=== PATIENT | female | born 1980 | race Caucasian/White ===

== ENCOUNTER 2024-07-23 18:52 | Outpatient (REF) | payer BC, SELFPAY ==
[2024-07-30 13:09] LABS: Age Gdln ACOG Testing Note (.); HPV Aptima Negative (Negative); IGP, Aptima HPV, rfx 16/18,45 Note (.)
== END 2024-07-23 18:53 | disposition home or self-care (01) ==
LOC: LAB 18:52
PROVIDERS: Visit Provider Physician Assistant
DX: Z01.419 Encounter for gynecological examination (general) (routine) without abnormal findings (principal)
CPT/HCPCS: 87624; 88175

== ENCOUNTER 2024-08-13 10:55 | Outpatient (OUT) | payer BC, SELFPAY ==
--- NOTE | 2024-08-13 10:58 | ECG_ITS ---
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
[2024-08-13 12:14] LABS: Anion Gap 14.6; Calcium 9.4 mg/dL (8.5-10.1); Carbon Dioxide 27.1 mmol/L (21.0-32.0); Chloride 101 mmol/L (98-107); Estimated GFR (African America >60 (>=60 mL/min/1.73m^2); Estimated GFR (Non-African Ame 53 (>=60 mL/min/1.73m^2); Glucose 97 mg/dL (74-106); Potassium 3.7 mmol/L (3.5-5.1); Sodium 139 mmol/L (136-145)
== END 2024-08-13 10:56 | disposition home or self-care (01) ==
LOC: PST 10:57
PROVIDERS: Visit Provider Obstetrics & Gynecology
DX: Z01.810 Encounter for preprocedural cardiovascular examination (principal); Z01.812 Encounter for preprocedural laboratory examination; R10.2 Pelvic and perineal pain; N94.10 Unspecified dyspareunia
CPT/HCPCS: 80048; 83735; 93005

== ENCOUNTER 2024-08-22 09:14 | Day surgery (SDC) | payer BC, SELFPAY ==
[2024-08-13 11:49] VITALS: BP 132/84; PULSE 75; TEMP 36.3; O2SAT 100; BMI 26.1
[2024-08-22] VITALS (15 sets, daily range): BP systolic 120–159; BP diastolic 73–101; PULSE 73–92; TEMP 36.1–36.4; O2SAT 97–100; BMI 26.3
[2024-08-22 09:32] LABS: Basophils Absolute Auto 0.1 10^3/uL (0.0-0.1); Basophils Percent Auto 0.8 % (0.2-2.0); Eosinophils Absolute Auto 0.4 10^3/uL (0.0-0.7); Eosinophils Percent Auto 4.9 % (0.9-7.0); Hematocrit 42.2 % (36.0-48.0); Hemoglobin 14.3 g/dL (12.0-16.0); Immature Granulocytes Abs Auto 0.02 10^3/uL (0.00-0.03); Immature Granulocytes Pct Auto 0.3 % (0.0-0.5); Lymphocytes Absolute Auto 1.8 10^3/uL (1.2-3.8); Lymphocytes Percent Auto 23.5 % (20.5-60.0); Mean Corpuscular HGB Conc 33.9 g/dL (29.9-35.2); Mean Corpuscular Hemoglobin 30.8 pg (26.7-34.0); Mean Corpuscular Volume 90.8 fL (81.0-99.0); Mean Platelet Volume 8.9 fL (9.5-13.5); Monocytes Absolute Auto 0.6 10^3/uL (0.3-0.8); Monocytes Percent Auto 7.7 % (1.7-12.0); Neutrophils Absolute Auto 4.8 10^3/uL (1.4-6.5); Neutrophils Percent Auto 62.8 % (43.0-75.0); Platelet Count 304 10^3/uL (150-450); Red Blood Count 4.65 10^6/uL (4.20-5.40); Red Cell Distribution Width 12.3 % (11.0-15.0); White Blood Count 7.7 10^3/uL (4.0-11.0)
[2024-08-22] MEDS: LACTATED RINGER'S SOLUTION 1,000 ML 50 ML IV (10:08)
[2024-08-22] MEDS: FAMOTIDINE/PF 20 MG/2 ML VIAL IV (10:45)
[2024-08-22] MEDS: SCOPOLAMINE 1 MG/3 DAYS TRANSDERM PATCH 1 PATCH TD (10:48)
[2024-08-22 11:05] LABS: HCG Quantitative <1 mIU/mL
--- NOTE | 2024-08-22 12:28 | P.ON_ITS ---
Brief Operative Note Date of procedure: 08/22/24 Pre-op diagnosis general: menorrhagia, pelvic pain Post-op diagnosis: other (adenomyotic appearing uterus bilateral hydrosalpingx) Procedure: NAME OF PROCEDURE: [d&c hysteroscopy, bilateral salpingectomy removal of filschie clips on rt side, lt side filschie clips not seen] PROCEDURE: findings adenomyotic appearing uterus, bilateral hydrosalpingx The patient was taken back to the Operating Room where she was prepped and draped in normal sterile fashion after being placed under general anesthesia without difficulty. She was also placed in the dorsal lithotomy position. A weighted speculum was placed in the patient?s vagina. The anterior lip of the cervix was identified and grasped with a single tooth tenaculum. The patient?s uterus was then sounded roughly to [?8 ] cm. The patient was then gently dilated using Hegar dilators. The hysteroscope was passed through the patient?s cervix into the uterus. Both ostia were identified. Normal appearing endometrium. No gross evidence of polyps, fibroids or malignancy. The hysteroscope was then removed from the patient's uterus.? At that point, gentle curettage was performed until a gritty texture was noted. The endometrial curettings were sent out to pathology.? The single tooth tenaculum was then removed from the patient's anterior lip of the cervix where excellent hemostasis was noted.. A wet sponge stick was placed into the patient's vagina. Attention was then turned to the patient's abdomen, where a scalpel was used to make a small infraumbilical incision. The S retractors were then used to dissect the underlying layers until the fascia could be seen. The fascia was then grasped with Jessica clamps and tented up. A knife was then used to make a small incision to the fascia. The muscle was identified, at that time two sutures of #0 Vicryl on a GI needle was then used and placed through the fascia. the peritoneum was then identified and entered bluntly. The 10-4 Brenda was then placed into the patient's abdomen. This was confirmed with direct visualization of the bowel, using the laparoscope. The patient's abdomen was then insufflated using approximately 4 liters of CO2 gas. Survey of the patient's abdomen demonstrated ovaries were normal in appearance as well as both tubes and uterus. A second and third rt and lt lateral ports which were 5 and 8 mm in size, was then placed after the skin incision was made under direct visualization . The patient's tube on the patient's right side was identified and tented up using a grasper, the ligasure apparatus was then used to come across the mesosalpingx from the fimbriated end to the insertion site at the uterus, the tube was then amputated and removed in its entirety. This was done on the contralateral side. The tubes were the removed from the patients abdomen. Excellent hemostasis was noted. The lateral ports were then moved under direct visualization with excellent hemostasis. All instruments were removed from the patient's abdomen. The fascia was closed using the #0 Vicryl on GI needle. The skin was closed using 4-0 Vicryl subcuticularly. All instruments were removed from the patient's vagina as well. The patient was taken out of the dorsal lithotomy position and placed in the supine position and taken to recovery in stable condition. Sponge, lap and needle counts were correct x2. Anesthesia: SANDY Surgeon: Nhan Aleman Cracking Still Operator: Elisha Haider Estimated blood loss (mL): 5 Pathology: other (bilateral tubes and endometrial currettings) Condition: stable Disposition: PACU Urinary Catheter Management Urinary Catheter Management Urethral: Cath placed during this visit: no
[2024-08-22] MEDS: LACTATED RINGER'S SOLUTION 1,000 ML 1000 ML IV (12:38)
[2024-08-22] MEDS: HYDROCODONE/ACET 5-325 MG TABLET 1 TAB PO (13:11)
[2024-08-22] MEDS: HYDROMORPHONE HCL 0.5 MG/0.5 ML SYRINGE IV (13:29)
[2024-08-22] MEDS: PROMETHAZINE HCL 25 MG TABLET PO (13:54)
== END 2024-08-22 14:33 | disposition home or self-care (01) ==
PROVIDERS: Visit Provider Obstetrics & Gynecology
PROC: (CPT 840; principal; 2024-08-22 10:35)
PROC: (CPT 840; 2024-08-22 10:35)
DX: N92.0 Excessive and frequent menstruation with regular cycle (principal); R10.2 Pelvic and perineal pain; N70.11 Chronic salpingitis; N80.03 Adenomyosis of the uterus; Z30.2 Encounter for sterilization
CPT/HCPCS: 58558; 58661; 36415; 84702; 85025; 88302; 88305; J1100; J1171; J1200; J1885; J2250; J2405; J2704; J3010; Q0169

== ENCOUNTER 2025-07-29 15:15 | Outpatient (REF) | payer BC, SELFPAY ==
--- OUTSIDE RECORDS SUMMARY | 2025-07-22 13:30 | XMS_ITS | Encounter Summary ---
Author Organization [facility] Address [address] [place] [address] Care Team Providers Care Block Setter [place] Name Role Phone Barbara Yousif NP Unavailable [phone] Micheal An MD Primary Care Provider [phone] Reason for Referral * Consultation (Routine) - AuthorizedSpecialtyDiagnoses / ProceduresReferred By ContactReferred To ContactDermatology Diagnoses Screening for skin cancer Procedures [place] OFFICE/OUTPATIENT [facility] 60 MINUTES Barbara Yousif NP [address] [place] [address] Phone: tel: fax: [place] [address] Phone: tel: fax: Referral IDStatusReasonStart DateExpiration DateVisits RequestedVisits [id number] Specialty Services Required / Reason for Visit * ReasonCommentsFatiguePt has had joint pain, fatigue, muscle weakness for quite a while. Pt's proprietary trader wanted her checked for autoimmune disorders and vitamins checked to see if that was causing the symptoms. Encounter Details DateTypeDepartmentCare Team (Latest Contact Info)Ryaujjekqhw66/15/2025 1:30 PM EDTOffice Visit [facility] [address] [place] [phone] Barbara Yousif NP [address] [place] [address] Chronic fatigue (Primary Dx); Pain in other joint; Muscle weakness; Palpitation; Primary hypertension; Paroxysmal atrial fibrillation (HCC); PVC (premature ventricular contraction); Mitral valve insufficiency, unspecified etiology; Heat intolerance; Hair loss; Shortness of breath; Family history of lung disease; Chronic cough; Anxiety about health; Screening for skin cancer; Family history of thyroid disease Social History Tobacco UseTypesPacks/DayYears UsedDateSmoking Tobacco: NeverPassive Smoke Exposure: PastSmokeless Tobacco: NeverAlcohol UseStandard Drinks/WeekComments Never0 (1 standard drink = 0.6 oz pure alcohol)AUDIT-CAnswerDate RecordedQ1: How often do you have a drink containing alcohol?Never04/06/2025Q2: How many drinks containing alcohol do you have on a typical day when you are drinking?Patient does not drink04/06/2025Q3: How often do you have six or more drinks on one occasion?Never04/06/2025PHQ-2AnswerDate RecordedPatient Health Questionnaire-2 Wlxwy745CommentsNoSex and Gender InformationValueDate Recorded Sex Assigned at SkncfIpcdfa93/11/2024 3:14 PM ESTLegal UavKeqgmw89/15/2023 7:00 PM EDTGender OgczaptvBgddei07/11/2024 3:14 PM ESTSexual OrientationNot on file documented as of this encounter Last Filed Vital Signs Vital SignReadingTime TakenCommentsBlood Hvvkjwap748/8810 1:22 PM EDT Qlpfp9245 1:22 PM EDTTemperature--Respiratory Rate--Oxygen Saturation-- Inhaled Oxygen Concentration--Zrudqb43.2 kg (126 lb)07/22/2025 1:22 PM EDTHeight --Body Mass Index21.1306 2:17 PM EDTdocumented in this encounter Progress Notes * Barbara Yousif NP - 07/22/2025 1:30 PM EDT Images from the original note were not included. Rosie Sandhu is a 45 y.o. female presents with chief complaint of Fatigue (Pt has had joint pain, fatigue, muscle weakness for quite a while. Pt's proprietary trader wanted her checked for autoimmune disorders and vitamins checked to see if that was causing the symptoms. ) HPI: HPI History of Present Illness The patient is a 45-year-old female who presents for follow-up. She recently consulted with a proprietary trader for a second opinion, during which an echocardiogram wasperformed. A cardiac MRI has been scheduled for next . Medication has been requested to manage anxiety during the MRI, as she has only undergone one such procedure in the past, prior to her first heart surgery. She has no history of Xanax use. Palpitations continue, and a two-week monitoring revealed atrial flutter. Her metoprolol dosage was increased from 100 mg to 150 mg, but this has not alleviated fatigue. She was advised to take metoprolol in the evening to help with fatigue. Referral to an health safety specialist for potential repeat ablation has been made, but this has not yet beenscheduled. She will revisit this issue in August 2025. A sleep study is scheduled for September 2025. Referral for genetic counseling has been made. Family history includes heart and lung issues, with her father having been born with half a heart. Her EKG showed sinus rhythm with nonspecific T wave changes and hypokinesis. She was informed that some of her valves are weakening and thickening. The proprietary trader suspects a genetic component, possibly related to connective tissue, and has recommended further testing for rheumatoid or autoimmune conditions, as well as checking B vitamins. A follow-up appointment with her proprietary trader is scheduled for 09/01/2025. She reports joint pain, particularly in her hips, shoulders, wrists, and elbows, which is exacerbated by cold weather and prolonged use. Muscle weakness is noted in her thighs, shoulders, and arms, making overhead tasks difficult. Pain is more manageable when she remains active but intensifies at night. NSAIDs like Motrin or Aleve provide some relief, but she is mindful not to overuse them due topotential stomach issues and vomiting. Autoimmune testing has not been done, but elevated levels ofcertain markers were noted in 2020, which were not addressed as she did not have a primary care physician at the time. High creatinine levels and a urine test result of 20 were reported in 2020. Elevated blood pressure was noted today, attributed to running out of metoprolol for four days due to insurance issues. She picked up her refill yesterday and reports normal blood pressure readings at home. Her vitamin D level was high last time, and Dr. Alexander mentioned that if it was high again when retested last week, sarcoidosis would be considered. She continues to experience vomiting. After her colonoscopy and endoscopy, no follow-up appointmentwas scheduled. She has a spot on her nose that her mother had removed, which was cancerous. Her mother said it looks just the same. A long-standing dry cough and shortness of breath have been reported to her proprietary trader. Lisinopril was discontinued due to its exacerbation of her cough. SUBJECTIVE: MEDICATIONS: Current Outpatient Medications Medication Instructions ALPRAZolam (XANAX) 0.5 mg, Oral, Daily PRN cetirizine (ZyrTEC) 10 MG tablet Take by mouth EPINEPHrine (EPIPEN) 0.3 mg, Injection, As needed, Call 911 after use. famotidine (PEPCID) 20 mg, Daily hydroCHLOROthiazide (HYDRODIURIL) 12.5 mg, Daily magnesium oxide (MAG-OX) 400 mg, Daily metoprolol succinate XL (TOPROL-XL) 100 mg, Daily ALLERGIES: Allergies[1] History: Medical History[2] Surgical History[3] Family History[4] Social History Socioeconomic History Marital status: Spouse name: Not on file Number of children: Not on file Years of education: Not on file Highest education level: Not on file Occupational History Not on file Tobacco Use Smoking status: Never Passive exposure: Past Smokeless tobacco: Never Vaping Use Vaping status: Never Used Substance and Sexual Activity Alcohol use: Never Drug use: Not on file Sexual activity: Not on file Other Topics Concern Not on file Social History Narrative Not on file Social Drivers of Health Financial Resource Strain: Not on file Food Insecurity: Not on file Transportation Needs: Not on file Physical Activity: Not on file Stress: Not on file Social Connections: Not on file Intimate Partner Violence: Not on file Housing Stability: Not on file I have reviewed and reconciled the history and medication list with the patient today. REVIEW OF SYMPTOMS: Review of Systems Constitutional: Negative for activity change, appetite change and fatigue. HENT: Negative. Respiratory: Negative for cough, shortness of breath and wheezing. Cardiovascular: Positive for palpitations. Negative for chest pain. Gastrointestinal: Positive for nausea and vomiting. Negative for abdominal pain and diarrhea. Genitourinary: Negative. Musculoskeletal: Positive for arthralgias and joint swelling. Skin: Negative for color change, rash and wound. Neurological: Positive for weakness. Psychiatric/Behavioral: Negative. OBJECTIVE: Results Labs - Vitamin D: 44 ng/mL Imaging - Echocardiogram: Ejection fraction of 55% to 60% Diagnostic Testing - EKG: Sinus rhythm with nonspecific T wave changes 03/25/2024 4:02 PM 06/25/2024 2:26 PM 07/23/2024 9:55 AM 09/03/2024 8:36 AM 10/02/2024 7:54 AM 04/06/2025 2:17 PM 07/22/2025 1:22 PM Vitals BMI 26.43 kg/m2 25.99 kg/m2 25.83 kg/m2 26.66 kg/m2 22.71 kg/m2 21.13 kg/m2 BSA (m2) 1.81 m2 1.79 m2 1.79 m2 1.81 m2 1.67 m2 1.62 m2 Systolic 126 130 112 112 128 124 136 Diastolic 82 88 72 70 90 86 88 Heart Rate 76 72 76 76 Height (in) 5' 4.75 5' 4.75 5' 4.75 Weight (lb) 157.6 155 154 159 135.4 126 Visit Report Report Report Report Report Report Report Report Physical Exam Vitals reviewed. Constitutional: General: She is not in acute distress. Appearance: Normal appearance. She is not ill-appearing. Cardiovascular: Rate and Rhythm: Normal rate and regular rhythm. Heart sounds: No murmur heard. Pulmonary: Effort: Pulmonary effort is normal. No respiratory distress. Breath sounds: Normal breath sounds. No wheezing or rhonchi. Abdominal: General: Bowel sounds are normal. There is no distension. Palpations: Abdomen is soft. Tenderness: There is no abdominal tenderness. Musculoskeletal: Right lower leg: No edema. Left lower leg: No edema. Skin: General: Skin is warm and dry. Findings: No rash. Neurological: Mental Status: She is alert. Mental status is at baseline. Psychiatric: Mood and Affect: Mood normal. Behavior: Behavior normal. Thought Content: Thought content normal. Judgment: Judgment normal. Physical Exam ASSESSMENT AND PLAN: Assessment/Plan Diagnoses and all orders for this visit: Chronic fatigue - CBC and differential; Future - Vitamin B12; Future - PHYLLIS; Future - Rheumatoid factor; Future - Comprehensive metabolic panel; Future - Sedimentation rate, automated; Future - Uric acid; Future - C-reactive protein; Future - Vitamin B6; Future - TSH; Future - T4, free; Future - Thyroglobulin; Future - Thyroid peroxidase antibody; Future - T3, free; Future Pain in other joint - CBC and differential; Future - Vitamin B12; Future - PHYLLIS; Future - Rheumatoid factor; Future - Comprehensive metabolic panel; Future - Sedimentation rate, automated; Future - Uric acid; Future - C-reactive protein; Future - Vitamin B6; Future - TSH; Future - T4, free; Future - Thyroglobulin; Future - Thyroid peroxidase antibody; Future - T3, free; Future Muscle weakness - CBC and differential; Future - Vitamin B12; Future - PHYLLIS; Future - Rheumatoid factor; Future - Comprehensive metabolic panel; Future - Sedimentation rate, automated; Future - Uric acid; Future - C-reactive protein; Future - Vitamin B6; Future - TSH; Future - T4, free; Future - Thyroglobulin; Future - Thyroid peroxidase antibody; Future - T3, free; Future Palpitation - CBC and differential; Future - Vitamin B12; Future - PHYLLIS; Future - Rheumatoid factor; Future - Comprehensive metabolic panel; Future - Sedimentation rate, automated; Future - Uric acid; Future - C-reactive protein; Future - Vitamin B6; Future - TSH; Future - T4, free; Future - Thyroglobulin; Future - Thyroid peroxidase antibody; Future - T3, free; Future Primary hypertension Paroxysmal atrial fibrillation (HCC) PVC (premature ventricular contraction) Mitral valve insufficiency, unspecified etiology Heat intolerance - CBC and differential; Future - Vitamin B12; Future - PHYLLIS; Future - Rheumatoid factor; Future - Comprehensive metabolic panel; Future - Sedimentation rate, automated; Future - Uric acid; Future - C-reactive protein; Future - Vitamin B6; Future - TSH; Future - T4, free; Future - Thyroglobulin; Future - Thyroid peroxidase antibody; Future - T3, free; Future Hair loss - CBC and differential; Future - Vitamin B12; Future - PHYLLIS; Future - Rheumatoid factor; Future - Comprehensive metabolic panel; Future - Sedimentation rate, automated; Future - Uric acid; Future - C-reactive protein; Future - Vitamin B6; Future - TSH; Future - T4, free; Future - Thyroglobulin; Future - Thyroid peroxidase antibody; Future - T3, free; Future Shortness of breath - Pulmonary Function Test Family history of lung disease Chronic cough - Pulmonary Function Test Anxiety about health - ALPRAZolam (Xanax) 0.5 MG tablet; Take 1 tablet (0.5 mg) by mouth Daily as needed for anxiety (prior to MRI, may repeat x 1 if needed) Screening for skin cancer - Ambulatory referral to Dermatology; Future Family history of thyroid disease - TSH; Future - T4, free; Future - Thyroglobulin; Future - Thyroid peroxidase antibody; Future - T3, free; Future Other orders - Follow Up In Family Medicine; Future Assessment & Plan 1. Cardiac evaluation: - She recently saw a new proprietary trader for a second opinion and underwent an echocardiogram. A cardiac MRI is scheduled for next to further investigate hypokinesis and potential genetic issues. - She has been experiencing palpitations and was found to have atrial flutter on a 2-week monitor. Her metoprolol dosage was increased from 100 mg to 150 mg, but it has not helped with fatigue. - She will follow up with cardiology in August to discuss possible repeat ablation. - Xanax 0.5 mg will be prescribed for her upcoming cardiac MRI, to be taken 30 minutes prior to theprocedure, with an additional dose available if needed. 2. Joint pain: - She reports severe joint pain in her hips, shoulders, wrists, and elbows, especially during colder weather and after carrying children. Her fingers and feet turn blue and white, suggesting possibleRaynaud's phenomenon. - A comprehensive set of labs will be ordered today, including CBC with differential, CMP, vitamin B12, vitamin B6, rheumatoid factor, PHYLLIS, sed rate, C- reactive protein, uric acid level, TSH, peroxidase antibody, and a full thyroid workup. - If the PHYLLIS test returns positive, a referral to rheumatology will be made. 3. Vomiting: - She continues to experience vomiting. Advised to follow up with GI. 4. Skin cancer screening: - A referral to dermatology will be made for a comprehensive skin check due to a spot on her nose that resembles a previous cancerous lesion removed from her mother. 5. Dry cough: - She has a long-standing dry cough and shortness of breath, which have been reported to her proprietary trader. - A pulmonary function test will be ordered to evaluate her lung function. Follow-up: Follow up with cardiology in August. Follow up with Barbara Yousif After Tests, if symptoms worsen or fail to improve. [1] Allergies Allergen Reactions Other Shortness of breath Seafood Shellfish Protein-Containing Drug Products Anaphylaxis Atorvastatin Muscle aches Shellfish Allergy [2] Past Medical History: Diagnosis Date Atrial fibrillation (HCC) [3] Past Surgical History: Procedure Laterality Date COLONOSCOPY 09/25/2024 OTHER SURGICAL HISTORY 01/21/2013 PVL ablation SALPINGOOPHORECTOMY 08/22/2024 bilateral with D&C TUBAL LIGATION [4] Family History Problem Relation Name Age of Onset No Known Problems Mother COPD Father Other (carbon monoxide poisoning) Father Crohn's disease Brother Hypertension Maternal Grandmother Hyperlipidemia Maternal Grandmother Coronary artery disease Maternal Grandmother Hypertension Maternal Grandfather Hyperlipidemia Maternal Grandfather Cerebral aneurysm Maternal Grandfather Lung cancer Paternal Grandmother Diabetes Paternal Grandmother Heart disease Paternal Grandfather Lung cancer Cousin Melanoma Cousin Cancer Other maternal great aunt documented in this encounter Plan of Treatment DateTypeDepartmentCare Team (Latest Contact Info)Fwupgbcbfrk44/15/2025 3:30 PM ESTProcedure Visit DANIELLE TAYLOR [address] [place] [address] Nhan Aleman DO [address] [place], [place] [id number] 04/08/2026 1:00 PM EDTOffice Visit [facility] [address] [place] [address] Barbara Yousif NP [address] [place] [address] 08/04/2026 9:00 AM EDTProcedure Visit DANIELLE TAYLOR [address] [place] [address] Virgie Lomax PA [address] [place] [address] [place] [address] NameTypePriorityAssociated DiagnosesOrder SchedulePulmonary Function TestImaging Routine Shortness of breath Chronic cough Ordered: 07/22/2025NameTypePriorityAssociated DiagnosesOrder ScheduleAmbulatory referral to DermatologyOutpatient ReferralRoutine Screening for skin cancer Expected: 07/22/2025 (Approximate), Expires: 01/20/2026documented as of this encounter Procedures Procedure NamePriorityDate/TimeAssociated DiagnosisCommentsANTINUCLEAR ANTIBODIES TITER AND BEXYZLVTsfenwf34/15/2025 2:14 PM EDT THYROID PEROXIDASE OVYLRGTLBJQgircje25/15/2025 2:14 PM EDT Chronic fatigue Pain in other joint Muscle weakness Palpitation Heat intolerance Hair loss Family history of thyroid disease NRSCTTXADIASPCcycijq87/15/2025 2:14 PM EDT Chronic fatigue Pain in other joint Muscle weakness Palpitation Heat intolerance Hair loss Family history of thyroid disease SED RATE BY MODIFIED ODKWIXZSPEFjkrjkh59/15/2025 2:14 PM EDT Chronic fatigue Pain in other joint Muscle weakness Palpitation Heat intolerance Hair loss CBC (INCLUDES DIFF/PLT)Shpjhel3407/22/2025 2:14 PM EDT Chronic fatigue Pain in other joint Muscle weakness Palpitation Heat intolerance Hair loss RHEUMATOID DRZDURIbgyjsr34/15/2025 2:14 PM EDT Chronic fatigue Pain in other joint Muscle weakness Palpitation Heat intolerance Hair loss C-REACTIVE EYFLWVEUkknuwc15/15/2025 2:14 PM EDT Chronic fatigue Pain in other joint Muscle weakness Palpitation Heat intolerance Hair loss PHYLLIS SCREEN W/MBFMNLRtaegyc44/15/2025 2:14 PM EDT Chronic fatigue Pain in other joint Muscle weakness Palpitation Heat intolerance Hair loss URIC HXEQZjimban27/15/2025 2:14 PM EDT Chronic fatigue Pain in other joint Muscle weakness Palpitation Heat intolerance Hair loss T3, FNKUJzrvsew93/15/2025 2:14 PM EDT Chronic fatigue Pain in other joint Muscle weakness Palpitation Heat intolerance Hair loss Family history of thyroid disease HDAXdotynu02/15/2025 2:14 PM EDT Chronic fatigue Pain in other joint Muscle weakness Palpitation Heat intolerance Hair loss Family history of thyroid disease T4, XCWJRhjsyqr10/15/2025 2:14 PM EDT Chronic fatigue Pain in other joint Muscle weakness Palpitation Heat intolerance Hair loss Family history of thyroid disease VITAMIN B6, BHAFSCXizvund26/15/2025 2:14 PM EDT Chronic fatigue Pain in other joint Muscle weakness Palpitation Heat intolerance Hair loss VITAMIN E04Mwipxlh68/15/2025 2:14 PM EDT Chronic fatigue Pain in other joint Muscle weakness Palpitation Heat intolerance Hair loss COMPREHENSIVE METABOLIC FKHTPQaonoay55/15/2025 2:14 PM EDT Chronic fatigue Pain in other joint Muscle weakness Palpitation Heat intolerance Hair loss documented in this encounter Results * (ABNORMAL) ANTINUCLEAR ANTIBODIES TITER AND PATTERN (07/22/2025 2:14 PM EDT) ComponentValueRef RangeTest MethodAnalysis TimePerformed AtPathologist SignatureANA TITER1:160(H)titerQUESTComment: ?Reference Range <1:40 Negative ?1:40-1:80 ?Low Antibody Level >1:80 Elevated Antibody Level PHYLLIS PATTERNNuclear, Speckled(A)QUESTComment: Speckled pattern is associated with mixed connective tissue disease (MCTD), systemic lupus erythematosus (SLE), Sjogren's syndrome, dermatomyositis, and systemic sclerosis/polymyositis overlap. AC-2,4,5,29: Speckled International Consensus on PHYLLIS Patterns (https://doi.org/10.[facility]5/kffp-0938-5873) Specimen (Source)Anatomical Location / LateralityCollection Method / Volume Collection TimeReceived Time07/22/2025 2:14 PM EDT1 2:15 PM EDT Narrative Resulting Agency Comment Performing Organization Information ?Site ID: QPT ?Name: [employer] [facility] ?Address: [address] [place] [address], [address] [place] [address] ?Director: Justino Casillas MD Authorizing ProviderResult TypeResult StatusBarbara Yousif ImmunotEGGLAB BLOOD ORDERABLESFinal ResultPerforming OrganizationAddressty/[facility] CodePhone Number QUEST * T3, free (07/22/2025 2:14 PM EDT)ComponentValueRef RangeTest MethodAnalysis TimePerformed AtPathologist SignatureT3, FREE2.72.3 - 4.2 pg/mLQUESTSpecimen (Source)Anatomical Location / LateralityCollection Method / VolumeCollection TimeReceived TimeBloodVenous blood specimen / Ybnhyea3607/22/2025 2:14 PM EDT 07/22/2025 2:15 PM EDT Narrative Resulting Agency Comment Performing Organization Information ?Site ID: QPT ?Name: [employer] [facility] ?Address: [address] [place] [address], [address] [place] [address] ?Director: Justino Casillas MD Authorizing ProviderResult TypeResult StatusSasara Yousif NPLAB BLOOD ORDERABLESFinal ResultPerforming OrganizationAddressty/[facility]/ZIP CodePhone Number QUEST * Thyroid peroxidase antibody (07/22/2025 2:14 PM EDT)ComponentValueRef Range Test MethodAnalysis TimePerformed AtPathologist SignatureTHYROID PEROXIDASE ANTIBODIES1<9 IU/mLQUESTSpecimen (Source)Anatomical Location / Laterality Collection Method / VolumeCollection TimeReceived TimeBloodVenous blood specimen / Kfujvke0907/22/2025 2:14 PM EDT1 2:15 PM EDT Narrative Resulting Agency Comment Performing Organization Information ?Site ID: QPT ?Name: [employer] [facility] ?Address: [address] [place] [address], [address] [place] [address] ?Director: Justino Casillas MD Authorizing ProviderResult TypeResult StatusSasara Yousif LAB BLOOD ORDERABLESFinal ResultPerforming OrganizationAddressCity/[facility] CodePhone Number QUEST * Thyroglobulin (07/22/2025 2:14 PM EDT)ComponentValueRef RangeTest Method Analysis TimePerformed AtPathologist SignatureTHYROGLOBULIN ANTIBODIES<1< or = 1 IU/mLQUESTTHYROGLOBULIN8.5ng/mLQUESTComment: ?Reference Range: ?Intact Thyroid ?? 2.8-40.9 Athyrotic <0.1 ?Note: Abnormal flagging is based ?on the reference interval for ?patients with intact thyroid. ? This test was performed using the MWI chemiluminescent method. Values obtained from different assay methods cannot be used interchangeably. Thyroglobulin levels, regardless of value, should not be interpreted as absolute evidence of the presence or absence of disease. For additional information, please refer to http://education.[employer].Assembly/faq/RLO428 (This link is being provided for informational/ educational purposes only.) Specimen (Source)Anatomical Location / LateralityCollection Method / Volume Collection TimeReceived TimeBloodVenous blood specimen / Xljmzxa5307/22/2025 2:14 PM EDT1 2:15 PM EDT Narrative Resulting Agency Comment Performing Organization Information ?Site ID: QPT ?Name: [employer] [facility] ?Address: [address] [place] [address], [address] [place] [address] ?Director: Justino Casillas MD Authorizing ProviderResult TypeResult StatusBarbara Yousif LAB BLOOD ORDERABLESFinal ResultPerforming OrganizationAddressCity/[facility] CodePhone Number QUEST * T4, free (07/22/2025 2:14 PM EDT)ComponentValueRef RangeTest MethodAnalysis TimePerformed AtPathologist SignatureT4, FREE1.20.8 - 1.8 ng/dLQUESTSpecimen (Source)Anatomical Location / LateralityCollection Method / VolumeCollection TimeReceived TimeBloodVenous blood specimen / Dybyzeb4507/22/2025 2:14 PM EDT 07/22/2025 2:15 PM EDT Narrative Resulting Agency Comment Performing Organization Information ?Site ID: QPT ?Name: [employer] [facility] ?Address: [facility], [address] [place] [phone] ?Director: Justino Casillas MD Authorizing ProviderResult TypeResult StatusBarbara Yousif ImmunotEGGLAB BLOOD ORDERABLESFinal ResultPerforming OrganizationAddressty/[facility] CodePhone Number QUEST * TSH (07/22/2025 2:14 PM EDT)ComponentValueRef RangeTest MethodAnalysis Time Performed AtPathologist SignatureTSH1.60mIU/LQUESTComment: ?Reference Range ? > or = 20 Years 0.40-4.50 ? Ranges ?First trimester ?0.26-2.66 ?Second trimester ?? 0.55-2.73 ?Third trimester ?0.43-2.91 Specimen (Source)Anatomical Location / LateralityCollection Method / Volume Collection TimeReceived TimeBloodVenous blood specimen / Fvdwucm9307/22/2025 2:14 PM EDT1 2:15 PM EDT Narrative Resulting Agency Comment Performing Organization Information ?Site ID: QPT ?Name: [facility] [facility] ?Address: [facility] Man[facility] Alvarez, [address] [place] [phone] ?Director: Justino Casillas MD Authorizing ProviderResult TypeResult StatusBarbara Yousif NPLAB BLOOD ORDERABLESFinal ResultPerforming OrganizationAddressty/State/ZIP CodePhone Number QUEST * Vitamin B6 (07/22/2025 2:14 PM EDT)ComponentValueRef RangeTest MethodAnalysis TimePerformed AtPathologist SignatureVITAMIN B6, PLASMA8.12.1 - 21.7 ng/mL QUESTComment: Vitamin supplementation within 24 hours prior to blood draw may affect the accuracy of the results. This test was developed and its analytical performance characteristics have been determined by [employer] [place], [place]. It has not been cleared or approved by the U.S. Food and Drug Administration. This assay has been validated pursuant to the CLIA regulations and is used for clinical purposes. ? Specimen (Source)Anatomical Location / LateralityCollection Method / Volume Collection TimeReceived TimeBloodVenous blood specimen / Zwoqzwi2707/22/2025 2:14 PM EDT1 2:15 PM EDT Narrative Resulting Agency Comment Performing Organization Information ?Site ID: AMD ?Name: [employer]/[facility] ?Address: [address] [place] [address] [place], [place] ?Director: Wale Weber M.D.,PhD Authorizing ProviderResult TypeResult StatusBarbara Yousif ImmunotEGGLAB BLOOD ORDERABLESFinal ResultPerforming OrganizationAddgerald champion regional medical centerCity/State/ZIP CodePhone Number QUEST * C-reactive protein (07/22/2025 2:14 PM EDT)ComponentValueRef RangeTest Method Analysis TimePerformed AtPathologist SignatureC-REACTIVE PROTEIN<3.0<8.0 mg/L QUESTSpecimen (Source)Anatomical Location / LateralityCollection Method / VolumeCollection TimeReceived TimeBloodVenous blood specimen / Unknown 07/22/2025 2:14 PM EDT1 2:15 PM EDT Narrative Resulting Agency Comment Performing Organization Information ?Site ID: QPT ?Name: [facility] [facility] ?Address: [address] [place] [address], [address] [place] [phone] ?Director: Justino Casillas MD Authorizing ProviderResult TypeResult StatusSasara Yousif NPLAB BLOOD ORDERABLESFinal ResultPerforming OrganizationAddressCity/State/ZIP CodePhone Number QUEST * Uric acid (07/22/2025 2:14 PM EDT)ComponentValueRef RangeTest MethodAnalysis TimePerformed AtPathologist SignatureURIC ACID6.52.5 - 7.0 mg/dLQUESTComment: Therapeutic target for gout patients: <6.0 mg/dL ?? Specimen (Source)Anatomical Location / LateralityCollection Method / Volume Collection TimeReceived TimeBloodVenous blood specimen / Pshglen0807/22/2025 2:14 PM EDT1 2:15 PM EDT Narrative Resulting Agency Comment Performing Organization Information ?Site ID: QPT ?Name: [employer] [facility] ?Address: [address] [place] [address], [address] [place] [phone] ?Director: Justino Casillas MD Authorizing ProviderResult TypeResult StatusSasara Echavarria [employer] BLOOD ORDERABLESFinal ResultPerforming OrganizationAddressCity/State/ZIP CodePhone Number QUEST * Sedimentation rate, automated (07/22/2025 2:14 PM EDT)ComponentValueRef Range Test MethodAnalysis TimePerformed AtPathologist SignatureSED RATE BY MODIFIED XAJICHVXTB26< OR = 20 mm/hQUESTSpecimen (Source)Anatomical Location / LateralityCollection Method / VolumeCollection TimeReceived TimeBloodVenous blood specimen / Jcwzvwh4007/22/2025 2:14 PM EDT1 2:15 PM EDT Narrative Resulting Agency Comment Performing Organization Information ?Site ID: QPT ?Name: [facility] [facility] ?Address: [address] [place] [address], [address] [place] [phone] ?Director: Justino Casillas MD Authorizing ProviderResult TypeResult StatusSaShop 9 Sevenromina Echavarria [employer] BLOOD ORDERABLESFinal ResultPerforming OrganizationAddressCity/State/ZIP CodePhone Number QUEST * (ABNORMAL) Comprehensive metabolic panel (07/22/2025 2:14 PM EDT)Component ValueRef RangeTest MethodAnalysis TimePerformed AtPathologist SignatureGlucose 8165 - 99 mg/dLQUESTComment: ? Fasting reference interval OSD742 - 25 mg/dLQUESTCreatinine1.00(H)0.50 - 0.99 mg/vHQUPBIZLGL02> OR = 60 mL/min/1.94u7DVZABEUI/CREATININE BXPNM426 - 22 (calc)CBEXNDsrtdi321919 - 146 mmol/LQUESTPotassium, Bld3.3(L)3.5 - 5.3 mmol/YIHBFMKznfdjko40076 - 110 mmol/L QUESTCarbon Sqnmsyf3773 - 32 mmol/WUPHRLIlrdcef55.3(H)8.6 - 10.2 mg/dLQUEST PROTEIN, TOTAL8.06.1 - 8.1 g/dLQUESTALBUMIN4.93.6 - 5.1 g/dLQUESTGLOBULIN3.11.9 - 3.7 g/dL (calc)QUESTALBUMIN/GLOBULIN RATIO1.61.0 - 2.5 (calc)QUESTBILIRUBIN, TOTAL0.70.2 - 1.2 mg/dLQUESTALKALINE QLQFMLITUTP8851 - 125 U/OGJESOEYW0725 - 30 U/XKULRSTOK007 - 29 U/LQUESTSpecimen (Source)Anatomical Location / Laterality Collection Method / VolumeCollection TimeReceived TimeBloodVenous blood specimen / Ulymywt8907/22/2025 2:14 PM EDT1 2:15 PM EDT Narrative Resulting Agency Comment Performing Organization Information ?Site ID: QPT ?Name: [facility] [facility] ?Address: [address] [place] [address], [address] [place] [phone] ?Director: Justino Casillas MD Authorizing ProviderResult TypeResult StatusSasara Yousif NPLAB BLOOD ORDERABLESFinal ResultPerforming OrganizationAddressCity/State/ZIP CodePhone Number QUEST * (ABNORMAL) Rheumatoid factor (07/22/2025 2:14 PM EDT)ComponentValueRef Range Test MethodAnalysis TimePerformed AtPathologist SignatureRHEUMATOID IZGJUK591 (H)<14 IU/mLQUESTComment: Results verified by repeat analysis on dilution. Specimen (Source)Anatomical Location / LateralityCollection Method / Volume Collection TimeReceived TimeBloodVenous blood specimen / Qvkmbdr0907/22/2025 2:14 PM EDT1 2:15 PM EDT Narrative Resulting Agency Comment Performing Organization Information ?Site ID: QPT ?Name: [facility] [facility] ?Address: [address] [place] [address], [address] [place] [address] ?Director: Justino Casillas MD Authorizing ProviderResult TypeResult StatusBarbara Yousif [facility] BLOOD ORDERABLESFinal ResultPerforming OrganizationAddressty/State/[facility] CodePhone Number QUEST * (ABNORMAL) PHYLLIS (07/22/2025 2:14 PM EDT)ComponentValueRef RangeTest Method Analysis TimePerformed AtPathologist SignatureANA SCREEN, IFAPOSITIVE(A) NEGATIVEQUESTComment: PHYLLIS IFA is a first line screen for detecting the presence of up to approximately 150 autoantibodies in various autoimmune diseases. A positive PHYLLIS IFA result is suggestive of autoimmune disease and reflexes to titer and pattern. Further laboratory testing may be considered if clinically indicated. For additional information, please refer to http://education.Asker/faq/DNN555 (This link is being provided for informational/ educational purposes only.) ?? Specimen (Source)Anatomical Location / LateralityCollection Method / Volume Collection TimeReceived TimeBloodVenous blood specimen / Ofxporf7707/22/2025 2:14 PM EDT1 2:15 PM EDT Narrative Resulting Agency Comment Performing Organization Information ?Site ID: QPT ?Name: [employer] [facility] ?Address: [address] [place] [address], [address] [place] [address] ?Director: Justino Casillas MD Authorizing ProviderResult TypeResult StatusBarbara Yousif [facility] BLOOD ORDERABLESFinal ResultPerforming OrganizationAddressty/State/ZIP CodePhone Number QUEST * Vitamin B12 (07/22/2025 2:14 PM EDT)ComponentValueRef RangeTest MethodAnalysis TimePerformed AtPathologist SignatureVITAMIN [id number] - 1,100 pg/mLQUEST Specimen (Source)Anatomical Location / LateralityCollection Method / Volume Collection TimeReceived TimeBloodVenous blood specimen / Ochdtsa4607/22/2025 2:14 PM EDT1 2:15 PM EDT Narrative Resulting Agency Comment Performing Organization Information ?Site ID: QPT ?Name: [facility] ?Address: [address] [place], [place] [address]e , [address] [place] [phone] ?Director: Jutsino Casillas MD Authorizing ProviderResult TypeResult StatusSasara Yousif NPLAB BLOOD ORDERABLESFinal ResultPerforming OrganizationAddressCity/State/ZIP CodePhone Number QUEST * CBC and differential (07/22/2025 2:14 PM EDT)ComponentValueRef RangeTest MethodAnalysis TimePerformed AtPathologist SignatureWHITE BLOOD CELL COUNT6.1 3.8 - 10.8 Thousand/uLQUESTRED BLOOD CELL COUNT4.583.80 - 5.10 Million/uLQUEST KRCESPUXTS93.311.7 - 15.5 g/sUZLTIQLODDZNZMWC62.935.0 - 45.0 %XOSDYJOA51.780.0 - 100.0 oEVDMHJTEY41.227.0 - 33.0 muBLCGBZIQA71.332.0 - 36.0 g/dLQUEST Comment: For adults, a slight decrease in the calculated MCHC value (in the range of 30 to 32 g/dL) is most likely not clinically significant; however, it should be interpreted with caution in correlation with other red cell parameters and the patient's clinical condition. RDW12.011.0 - 15.0 %QUESTPLATELET BMHZF789731 - 400 Thousand/uLQUESTMPV9.67.5 - 12.5 fLQUESTABSOLUTE NEUTROPHILS3,3121,500 - 7,800 cells/uLQUESTABSOLUTE LYMPHOCYTES1,718633 - 3,900 cells/uLQUESTABSOLUTE DIZQQNDRA015379 - 950 cells/uL QUESTABSOLUTE BNSYDAVQJIO70021 - 500 cells/uLQUESTABSOLUTE JXEFAQGBI792 - 200 cells/mADVQAJFZRBBUUOHXM69.3%DYYAVKPNBWSWSIYW44.9%QUESTMONOCYTES7.8%QUEST EOSINOPHILS5.8%QUESTBASOPHILS1.2%QUESTSpecimen (Source)Anatomical Location / LateralityCollection Method / VolumeCollection TimeReceived TimeBloodVenous blood specimen / Qafitpr1107/22/2025 2:14 PM EDT1 2:15 PM EDT Narrative Resulting Agency Comment Performing Organization Information ?Site ID: QPT ?Name: [facility] ?Address: [address] [place] [address], [address] [place] [phone] ?Director: Justino Casillas MD Authorizing ProviderResult TypeResult StatusSasara Yousif NPLAB BLOOD ORDERABLESFinal ResultPerforming OrganizationAddressCity/State/ZIP CodePhone Number QUEST documented in this encounter Visit Diagnoses Diagnosis Chronic fatigue- Primary Other malaise and fatigue Pain in other joint Muscle weakness Muscle weakness (generalized) Palpitation Palpitations Primary hypertension Unspecified essential hypertension Paroxysmal atrial fibrillation (HCC) Atrial fibrillation PVC (premature ventricular contraction) Other premature beats Mitral valve insufficiency, unspecified etiology Heat intolerance Unspecified effects of heat and light Hair loss Unspecified alopecia Shortness of breath Family history of lung disease Family history of other condition Chronic cough Cough Anxiety about health Screening for skin cancer Screening for malignant neoplasm of the skin Family history of thyroid disease Family history of other endocrine and metabolic diseases documented in this encounter Care Teams Team MemberRelationshipSpecialtyStart DateEnd Date Micheal An MD [address] [place] [address] PCP - GeneralFamily Ifvgsmvg73/2/25 Barbara Yousif NP [address] [place] [address] Nurse PractitionerFamily Medicine12/20/23documented as of this encounter
--- OUTSIDE RECORDS SUMMARY | 2025-07-29 10:00 | XMS_ITS | Encounter Summary ---
Author Organization [facility] Address [address] [place] [address] Care Team Providers Care Fishing Rod Assembler Name Role Phone Barbara Yousif GOLD PROSPECTOR Unavailable [phone] Micheal An MD Primary Care Provider [phone] Reason for Visit * ReasonCommentsWell Women Visit Encounter Details DateTypeDepartmentCare Team (Latest Contact Info)Bclzephrtcn07/22/2025 10:00 AM EDTOffice Visit [facility] [address] [place] [phone] Virgie Lomax PA [address] [place], [facility]11 Well woman exam with routine gynecological exam; Breast cancer screening by mammogram; Irregular periods/menstrual cycles; Pain in female genitalia on intercourse; Adenomyosis Social History Tobacco UseTypesPacks/DayYears UsedDateSmoking Tobacco: NeverPassive [...] drinks on one occasion?Never04/06/2025PHQ-2AnswerDate RecordedPatient Health Questionnaire-2 Yizjz220CommentsNoSex and Gender InformationValueDate Recorded Sex Assigned at NsslpJzigsl58/11/2024 3:14 PM ESTLegal RsuEodkki57/15/2023 7:00 PM EDTGender QpopfhkvMknhej46/11/2024 3:14 PM ESTSexual OrientationNot on file documented as of this encounter Last Filed Vital Signs Vital SignReadingTime TakenCommentsBlood Rpowgvmt687/7807/29/2025 9:56 AM EDT Pulse--Temperature--Respiratory Rate--Oxygen Saturation--Inhaled Oxygen Concentration--Mairov03.2 kg (126 lb 1.9 oz)07/29/2025 9:56 AM EDTHeight--Body Mass Index21.15004/06/2025 2:17 PM EDTdocumented in this encounter Progress Notes * PARISH Bowman - 07/29/2025 10:00 AM EDT Reason for Appointment: Patient ID: Rosie Sandhu is a 45 y.o. female who presents for [facility] Women Visit Patient presents today for Annual Exam. MEDICATIONS Current Outpatient Medications Medication Instructions ALPRAZolam (XANAX) 0.5 mg, Oral, Daily PRN cetirizine (ZyrTEC) 10 MG tablet Take by mouth EPINEPHrine (EPIPEN) 0.3 mg, Injection, As needed, Call 911 after use. famotidine (PEPCID) 20 mg, Daily hydroCHLOROthiazide (HYDRODIURIL) 12.5 mg, Daily magnesium oxide (MAG-OX) 400 mg, Daily metoprolol succinate XL (TOPROL-XL) 100 mg, Daily ALLERGIES Allergies Allergen Reactions Other Shortness of breath Seafood Shellfish Protein-Containing Drug Products Anaphylaxis Atorvastatin Muscle aches Shellfish Allergy PROBLEMS Active Ambulatory Problems Diagnosis Date Noted Hypertension 08/07/2023 Palpitation 08/07/2023 Paroxysmal atrial fibrillation (HCC) 02/05/2014 PVC (premature ventricular contraction) 11/07/2013 Anxiety 03/14/2017 Depression 03/14/2017 Gastroesophageal reflux disease without esophagitis 04/01/2024 Adenomyosis 10/02/2024 Hyperlipidemia 01/28/2025 Never smoked tobacco 02/13/2024 Mitral valve insufficiency 04/06/2025 Chronic cough 07/22/2025 Resolved Ambulatory Problems Diagnosis Date Noted BMI 27.0-27.9,adult 02/13/2024 Past Medical History: Diagnosis Date Atrial fibrillation (HCC) HISTORY PAST MEDICAL HISTORY SOCIAL HISTORY Past Medical History: Diagnosis Date Atrial fibrillation (HCC) Social History Tobacco Use Smoking status: Never Passive exposure: Past Smokeless tobacco: Never Vaping Use Vaping status: Never Used Substance Use Topics Alcohol use: Never Drug use: Not on file FAMILY HISTORY Family History Problem Relation Name Age of [...] Melanoma Cousin Cancer Other maternal great aunt SURGICAL HISTORY Past Surgical History: Procedure Laterality Date COLONOSCOPY 09/25/2024 OTHER SURGICAL HISTORY 01/21/2013 PVL ablation SALPINGOOPHORECTOMY 08/22/2024 bilateral with D&C TUBAL LIGATION REVIEW OF SYSTEMS Review of Systems: Review of Systems All other systems reviewed and are negative. OBJECTIVE Objective: Physical Exam Constitutional: Appearance: Normal appearance. She is well-developed. Genitourinary: Vulva normal. Right Adnexa: not tender and no mass present. Left Adnexa: not tender and no mass present. No cervical discharge. Breasts: Breasts are soft. Right: Normal. Left: Normal. HENT: Head: Normocephalic. Nose: Nose normal. Mouth/Throat: Mouth: Mucous membranes are moist. Cardiovascular: Rate and Rhythm: Normal rate and regular rhythm. Pulmonary: Effort: Pulmonary effort is normal. Breath sounds: Normal breath sounds. Abdominal: General: Bowel sounds are normal. There is no distension. Palpations: Abdomen is soft. Tenderness: There is no abdominal tenderness. There is no guarding or rebound. Musculoskeletal: General: No swelling. Normal range of motion. Cervical back: Normal range of motion. Right lower leg: No edema. Left lower leg: No edema. Neurological: General: No focal deficit present. Mental Status: She is alert and oriented to person, place, and time. Skin: General: Skin is warm and dry. Psychiatric: Mood and Affect: Mood normal. Behavior: Behavior normal. Vitals and nursing note reviewed. Exam conducted with a mold closer helper present. Vitals: Estimated body mass index is 21.15 kg/m?? as calculated from the following: Height as of 04/06/25: 5' 4.75 . Weight as of this encounter: 126 lb 1.9 oz. BP: 120/78 Patient's last menstrual period was 07/21/2025. Assessment/Plan ICD-10-CM 1. Well woman exam with routine gynecological exam Z01.419 THIN PREP TIS PAP AND HR HPV DNA 2. Breast cancer screening by mammogram Z12.31 Bilateral screening mammogram Bilateral screening mammogram Annual: Patient presents today for an annual exam. Patient states she is doing well and has no complaints. Pap was obtained without difficulty and patient given mammogram order to have scheduled/obtained. Patient states that she is having irregular periods, heavy cycles, painful intercourse and would like to discuss next steps like Hysterectomy. Patient does have Adenomyosis. We will order imaging at this time. Orders Placed This Encounter Procedures Bilateral screening mammogram Follow Up: Patient is to return in one year for annual unless needed otherwise. Documented by Lucina Crockett LPN on behalf of: PARISH Bowman documented in this encounter Plan of Treatment DateTypeDepartmentCare Team (Latest Contact Info)Alrlgtgqfrq19/15/2025 3:30 PM ESTProcedure Visit DANIELLE TAYLOR [address] [place] [address] Nhan Aleman DO [address] [place], [place] [id number] 04/08/2026 1:00 PM EDTOffice Visit [facility] [address] [facility] [address] [facility] [place] [address] Barbara Yousif NP [address] [facility] [place], [place] [id number] 08/04/2026 9:00 AM EDTProcedure Visit DANIELLE TAYLOR [address] [place] [address] Virgie Lomax PA [address] [place] [address] [place] [address] NameTypePriorityAssociated DiagnosesOrder ScheduleBilateral screening mammogram ImagingRoutine Breast cancer screening by mammogram Expected: 07/29/2025 (Approximate), Expires: 09/28/2026THIN PREP TIS PAP AND HR HPV DNAPathology and CytologyRoutine Well woman exam with routine gynecological exam Ordered: 07/29/2025US Pelvis w/ TVImagingRoutine Irregular periods/menstrual cycles Pain in female genitalia on intercourse Expected: 07/29/2025, Expires: 07/29/2026documented as of this encounter Visit Diagnoses Diagnosis Well woman exam with routine gynecological exam Routine gynecological examination Breast cancer screening by mammogram Irregular periods/menstrual cycles Pain in female genitalia on intercourse Dyspareunia Adenomyosis Endometriosis of uterus documented in this encounter Care Teams Team MemberRelationshipSpecialtyStart DateEnd Date Micheal An MD [address] [place] [address] PCP - GeneralFamily Bqhrgsjr82/2/25 Barbara Yousif NP [address] [place] [address] Nurse PractitionerFamily Medicine12/20/23documented as of this encounter
--- OUTSIDE RECORDS SUMMARY | 2025-07-29 15:23 | XMS_ITS | Clinical Summary ---
Author Organization [facility] Address [address] [place] [address] [place] [address] Care Team Providers Care Sand Car Worker Name Role Phone Unavailable Primary Care Provider Unavailabl e Source Comments The following information is NOT included in Care Everywhere downloads:Psychiatric notes, ECG results, Cardiac Rehab notes, Pulmonary Function notes, data from SmartForms (includes but not limited toPregnancy data,audiograms, eye exams, pre-surgical evaluation notes, well-child exam data).[facility] Encounters DateTypeDepartmentCare IpvlLeobfxaljnc12/13/2025Telephone [facility] Physician Referral Service [address] [place] [address] Assigned, To Be External referral inquiry- genetic appt mqdrmnsyx93/01/2025Transcribe Orders [facility] Physician Referral Service [address] [place] [phone] Natalie Freeman from Last 3 Months Social History Tobacco UseTypesPacks/DayYears UsedDateSmoking Tobacco: Never Assessed CommentsUnknownSex and Gender InformationValueDate RecordedSex Assigned at Not on fileLegal NenYdwspm47/01/2025 4:15 PM EDTGender IdentityNot on fileSexual OrientationNot on file Plan of Treatment DateTypeDel[facility] hospitalCare Team (Latest Contact Info)Ywmgtinnmin09/24/2025 1:45 PM ESTTelemedicine [facility] Pediatric Genetics [address] [place] [phone] Jerry Blanco [address] [place] [address] [place] [address] Health MaintenanceDue DateLast DoneCommentsHIV Test1997Hepatitis C Zeegueyp38/12/2000Tdap Xdlrjyi2603/19/2000Hepatitis A (HAV) Vaccine (optional start 19+ years)2001Hepatitis B (HBV) Vaccine (1 of 3 - 19+ 3-dose series) 2001Tetanus (Td or Tdap) Skoeneo7403/19/2001Pap Smear2003HPV Vaccine (optional start 27-45 years)03/19/20090611Fohbimxnskp86/12/2022COVID-19 Vaccine ( - 2023- season)2025Influenza Vaccine (#1)2025Shingles (RZV) Vaccine (1 of 2)2Pneumococcal Vaccine(s)Aged OutNo longer eligible based on patient's age to complete this topic Insurance [facility] Address: [address] [place] [address]
--- OUTSIDE RECORDS SUMMARY | 2025-07-29 15:23 | XMS_ITS | Clinical Summary ---
Author Organization [facility] Address [address], [address] [place] [address] Care Team Providers Care Ict Managers Name Role Phone Barbara Yousif HANDY - OIL EXPELLER Primary Care Provid er Allergies Active AllergyReactionsCriticalityNoted DateCommentsOtherShortness Of BreathHigh 01/24/2017 Seafood Shellfish Kaxxaeu5307/17/2022hellfish Protein-Containing Drug ProductsAnaphylaxis High07/17/2022 Medications MedicationSigDispense QuantityRefillsLast FilledStart DateEnd DateStatus hydroCHLOROthiazide 12.5 MG tablet Take 1 tablet by mouth dailyActive magnesium oxide (MAG-OX) 400 MG tablet Take 1 tablet by mouth dailyActive metoprolol succinate (TOPROL XL) 100 MG extended release tablet Take 1 tablet by mouth dailyActive lisinopril (PRINIVIL;ZESTRIL) 5 MG tablet Take 1 tablet by mouth daily02/13/2024ctive famotidine (PEPCID) 20 MG tablet Take 1 tablet by mouth Daily with supperActive cetirizine (ZYRTEC) 10 MG tablet Take 1 tablet by mouth dailyActive Active Problems ProblemNoted DateDiagnosed DateGERD (gastroesophageal reflux disease)09/17/2024 Gastroesophageal reflux disease without hbfpntazekm54/25/2024Hyperlipidemia 02/13/20243281Hmfrifumwcct13/31/3942Zlfwvdqcogb46/31/9880Hpqqnnn72/07/2017Depression 03/14/2017Paroxysmal atrial liougqqkujha83/01/2014 Overview (09/17/2024): Last Assessment & Plan: History of AF ablation Continue Apixaban this AM PVC (premature ventricular contraction)11/07/2013 Overview (09/17/2024): Last Assessment & Plan: History of PVC ablation in [place] last year. 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 LV Pt with rare PVCs overnight, feels improved today Follow up with Dr Mortensen in 6 weeks with echo and Holter If recurrence, consider repeat ablation vs trial of Mexitil Resolved Problems ProblemNoted DateDiagnosed DateResolved DateScreen for colon kfjqvm1409/17/2024 10/17/2024 Social History Tobacco UseTypesPacks/DayYears UsedDateSmoking Tobacco: NeverSmokeless Tobacco: NeverAlcohol UseStandard Drinks/WeekCommentsNot Currently0 (1 standard drink = 0.6 oz pure alcohol)Interpersonal Safety Domain Source: IP Abuse ScreeningAnswer Date RecordedPhysical wvjcdBshmxk94/19/2024Verbal zmuncZzdqmu53/19/2024Emotional zmsgzHpmpjc89/19/2024Financial vnwgqOmeyth63/19/2024Sexual kretiJjbpjw58/19/2024 CommentsNoSex and Gender InformationValueDate RecordedSex Assigned at BirthNot on fileLegal FclVaxmga54/11/2024 12:18 PM EDTGender IdentityFemale 09/29/2024 12:51 PM ESTSexual OrientationNot on file Last Filed Vital Signs Vital SignReadingTime TakenCommentsBlood Uvsikekz719/6909/25/2024 8:00 PM EST Nxpen105409/25/2024 8:00 PM GWUPxhlekrybuj86.2 ??C (97.2 ??F)09/25/2024 7:31 PM ESTRespiratory Vyaf343111/26/2023 8:00 PM ESTOxygen Djtgskhrxn33%09/25/2024 8:00 PM ESTInhaled Oxygen Concentration--Uordvc35.9 kg (154 lb)09/25/2024 2:21 PM EST Jiwddm274.6 cm (5' 4 )09/25/2024 2:25 PM ESTBody Mass Index26.43111/26/2023 2:21 PM EST Plan of Treatment Health MaintenanceDue DateLast DoneCommentsDepression Jomddqtevn39/12/1994 Varicella vaccine (1 of 2 - 13+ 2-dose series)1995HIV blbffe6403/19/1997 Hepatitis C ifbdln2203/19/2000DTaP/Tdap/Td vaccine (1 - Tdap)2001Hepatitis B vaccine (1 of 3 - 19+ 3-dose series)2001Pap smear2003Cervical cancer poyzxa2003/19/2012HPV (without or with Pap)2012Diabetes bknadh5403/19/2017 Embvaz4203/19/2022Flu vaccine (#1)05/08/2025OVID-19 Vaccine ( season) 2025reast cancer mbfurj31/HPV vaccine (No Doses Required)CompletedHepatitis A vaccineAged OutNo longer eligible based on patient's age to complete this topicHib vaccineAged OutNo longer eligible based on patient's age to complete this topicMeningococcal (ACWY) vaccineAged OutNo longer eligible based on patient's age to complete this topicMeningococcal B vaccineAged OutNo longer eligible based on patient's age to complete this topic Pneumococcal 0-49 years VaccineAged OutNo longer eligible based on patient's age to complete this topicPolio vaccineAged OutNo longer eligible based on patient's age to complete this topic Insurance Care Teams Team MemberRelationshipSpecialtyStart DateEnd Date Barbara Yousif APRN - CASSANDR[facility] [address] [place] [address] PCP - GeneralNurse Practitioner12/17/23
--- OUTSIDE RECORDS SUMMARY | 2025-07-29 15:23 | XMS_ITS | Clinical Summary ---
Author Organization [facility] Address [address] [place] [address] Care Team Providers Care Tug Hand Name Role Phone Barbara Yousif MD Primary Care Provider Unava ilable Social History Tobacco UseTypesPacks/DayYears UsedDateSmoking Tobacco: Never Assessed CommentsUnknownSex and Gender InformationValueDate RecordedSex Assigned at Asqczg9407/04/2025 9:42 AM EDTLegal NeyEnehke08/26/2025 2:30 PM EDTGender Identity Choose not to dftholis42/27/2025 9:42 AM EDTSexual OrientationChoose not to stcjcehq57/27/2025 9:42 AM EDT Plan of Treatment DateTypeDepartmentCare Team (Latest Contact Info)Codbxjrmaui77/23/2025 11:30 AM EDTAppointment [facility] [address] [place] [id number] Health MaintenanceDue DateLast DoneCommentsDepression Ewfnybnkv86/12/1994 Varicella Vaccines (1 of 2 - 13+ 2-dose series)1995Hepatitis B Vaccines (1 of 3 - 19+ 3-dose series)2001Pap Smear2003Adult Wzxodqy6403/19/2004HPV Vaccines (1 - 3-dose SCDM series)2009Cervical Cancer Qlbhmwkvy71/12/2012 HPV/Lodsuo2003/19/2012Influenza Vaccine (#1)06/08/20256780Eydbrmrfo54/13/2026 12/19/2023Zoster Vaccines (1 of 2)2032HIB VaccinesAged OutNo longer eligible based on patient's age to complete this topicIPV VaccinesAged OutNo longer eligible based on patient's age to complete this topicMeningococcal B VaccineAged OutNo longer eligible based on patient's age to complete this topic Meningococcal VaccineAged OutNo longer eligible based on patient's age to complete this topicPneumococcal Vaccine: Pediatrics (0 to 5 Years) and At-Risk Patients (6 to 64 Years)Aged OutNo longer eligible based on patient's age to complete this topicRotavirus VaccinesAged OutNo longer eligible based on patient's age to complete this topic Insurance Care Teams Team MemberRelationshipSpecialtyStart DateEnd Date Barbara Yousif MD [address] [place] [address] PCP [facility]07/04/25
--- OUTSIDE RECORDS SUMMARY | 2025-07-29 15:24 | XMS_ITS | Clinical Summary ---
Author Organization [facility] Address [address] [place] [address] Care Team Providers Care Party Bus Driver Name Role Phone Barbara Yousif MOVEMENT [employer]SEM[employer] FINAL INSPECTOR Unavailable [phone] Micheal An MD Primary Care Provider [phone] Allergies Active AllergyReactionsCriticalityNoted XmnbOibpworbAkcjclkvdaxf71/30/2025 Muscle aches OtherShortness of fgjofiIpfa96/19/2017 Seafood Shellfish Burvfix4707/17/2022hellfish Protein-Containing Drug ProductsAnaphylaxis High08/07/2023 Medications MedicationSigDispense QuantityRefillsLast FilledStart DateEnd DateStatus metoprolol succinate XL (Toprol-XL) 100 MG 24 hr tablet Take 100 mg by mouth DailyActive hydroCHLOROthiazide (HYDRODiuril) 12.5 MG tablet Take 12.5 mg by mouth DailyActive magnesium oxide (Mag-Ox) 400 MG tablet Take 400 mg by mouth DailyActive cetirizine (ZyrTEC) 10 MG tablet Take by mouthActive famotidine (Pepcid) 20 MG tablet Take 20 mg by mouth DailyActive EPINEPHrine (Epipen) 0.3 MG/0.3ML injection syringe Indications:Wellness examination,Shellfish allergyInject 0.3 mL (0.3 mg) as directed if needed for anaphylaxis Call 911 after use. 1 each //ctive ALPRAZolam (Xanax) 0.5 MG tablet Indications:Anxiety about healthTake 1 tablet (0.5 mg) by mouth Daily as needed for anxiety (prior to MRI, may repeat x 1 if needed) 2 tablet 07/22/2025tive lisinopril 5 MG tablet Take by mouth Daily07/22/2025Discontinued(Therapy completed) Active Problems ProblemNoted DateDiagnosed DateChronic cough07/22/2025Mitral valve insufficiency 04/06/20254054Gnfvymalucmizw17/23/7264Ufwzkwdvpru47/26/2024Gastroesophageal reflux disease without tmtfsltnzat61/25/2024Never smoked egbbwsz9802/13/2024Hypertension 08/07/20235979Lyjeaglqffp00/31/5367Bgfcnat68/07/8300Dnvjtmizli62/07/2017Paroxysmal atrial chkwhdvcseou00/01/2014 Overview (12/11/2023): Last Assessment & Plan: History of AF ablation Continue Apixaban this AM PVC (premature ventricular contraction)11/07/2013 Overview (12/11/2023): Last Assessment & Plan: History of PVC ablation in [place] last year. 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 LV Pt with rare PVCs overnight, feels improved today Follow up with Dr Mortensen in 6 weeks with echo and Holter If recurrence, consider repeat ablation vs trial of Mexitil Resolved Problems ProblemNoted DateDiagnosed DateResolved DateBMI 27.0-27.9,adult02/13/2024 04/06/2025 Encounters DateTypeDepartmentCare EjfwVvnjcbczkbc94/22/2025 10:00 AM EDTOffice Visit [facility] [address] [place] [address] [place] [address] Virgie Lomax PA Well woman exam with routine gynecological exam; Breast cancer screening by mammogram; Irregular periods/menstrual cycles; Pain in female genitalia on intercourse; Wsnxontbuhz54/22/2025Results [facility] [address] [facility] [place] [address] Brenda Werner MA CBC and differential, Vitamin B12, PHYLLIS, Additional followed-up results: 12 07/22/2025 1:30 PM EDTOffice Visit [facility] [address] [place] [address] Barbara Yousif NP Chronic fatigue (Primary Dx); Pain in other joint; Muscle weakness; Palpitation; Primary hypertension; Paroxysmal atrial fibrillation (HCC); PVC (premature ventricular contraction); Mitral valve insufficiency, unspecified etiology; Heat intolerance; Hair loss; Shortness of breath; Family history of lung disease; Chronic cough; Anxiety about health; Screening for skin cancer; Family history of thyroid enuccnz5407/22/2025amboo flowsheet [facility] [address] [place] [address] Barbara Yousif NP 07/22/20250471Axydyg89/30/2025Telephone [facility] [address] [place] [phone] Ramya Xiao MA Results (ECHO RESULTS)from Last 3 Months Family History Medical HistoryRelationNameCommentsCrohn's diseaseBrotherLung cancerCousin 1 MelanomaCousin 2COPDFathercarbon monoxide poisoningFatherCerebral aneurysm Maternal GrandfatherHyperlipidemiaMaternal GrandfatherHypertensionMaternal GrandfatherCoronary artery diseaseMaternal GrandmotherHyperlipidemiaMaternal GrandmotherHypertensionMaternal GrandmotherNo Known ProblemsMotherCancerOther 2 maternal great auntHeart diseasePaternal GrandfatherDiabetesPaternal Grandmother Lung cancerPaternal GrandmotherRelationNameStatusCommentsBrotherCousin 1Alive Cousin 2AliveFatherDeceasedMaternal GrandfatherMaternal GrandmotherMotherAlive Other 1Other 2AlivePaternal GrandfatherPaternal GrandmotherDeceased Social History Tobacco UseTypesPacks/DayYears UsedDateSmoking Tobacco: NeverPassive Smoke Exposure: PastSmokeless Tobacco: Never Tobacco Cessation:Counseling Given: Not Answered Alcohol UseStandard Drinks/WeekCommentsNever0 (1 standard drink = 0.6 oz pure alcohol)AUDIT-CAnswerDate RecordedQ1: How often do you have a drink containing alcohol?Never04/06/2025Q2: How many drinks containing alcohol do you have on a typical day when you are drinking?Patient does not drink04/06/2025Q3: How often do you have six or more drinks on one occasion?Never04/06/2025PHQ-2AnswerDate RecordedPatient Health Questionnaire-2 Bftvv051CommentsNoSex and Gender InformationValueDate RecordedSex Assigned at OlkkpNkvrjo81/11/2024 3:14 PM ESTLegal PisQeezau29/15/2023 7:00 PM EDTGender NmiucbmkPhojlu26/11/2024 3:14 PM ESTSexual OrientationNot on file Last Filed Vital Signs Vital SignReadingTime TakenCommentsBlood Ibldgneq991/7807/29/2025 9:56 AM EDT Kgkqs618907/22/2025 1:22 PM EDTTemperature--Respiratory Rate--Oxygen Saturation-- Inhaled Oxygen Concentration--Fgwnkc46.2 kg (126 lb 1.9 oz)07/29/2025 9:56 AM CZRUssivn182.5 cm (5' 4.75 )04/06/2025 2:17 PM EDTBody Mass Index21.15004/06/2025 2:17 PM EDT Plan of Treatment DateTypeDepartmentCare Team (Latest Contact Info)Pegnfaevssa72/15/2025 3:30 PM ESTProcedure Visit [facility]LE [facility] [address] [place] [address] Nhan Aleman DO [address] [place] [address] 04/08/2026 1:00 PM EDTOffice Visit [facility] [address] [place] [phone] Barbara Yousif NP [address] [place] [address] 08/04/2026 9:00 AM EDTProcedure Visit [facility]LE [facility] [address] [place] [address] Virgie Lomax PA [address] [place] [address] Health MaintenanceDue DateLast DoneCommentsPap Smear2003Cervical Cancer Uoszgnjeb16/12/2012HPV/Ynyhlu8903/19/20121495Drzwqqzow86Influenza Vaccine (#1)2025 Procedures Procedure NamePriorityDate/TimeAssociated DiagnosisCommentsANTINUCLEAR ANTIBODIES TITER AND JWJLFREBvqchlv26/15/2025 2:14 PM EDT T3, CIXQNpfgnuk41/15/2025 2:14 PM EDT Chronic fatigue Pain in other joint Muscle weakness Palpitation Heat intolerance Hair loss Family history of thyroid disease THYROID PEROXIDASE ZCHREOFKMAZckixwf85/15/2025 2:14 PM EDT Chronic fatigue Pain in other joint Muscle weakness Palpitation Heat intolerance Hair loss Family history of thyroid disease FNVQGGGPFTUQACtqzndl12/15/2025 2:14 PM EDT Chronic fatigue Pain in other joint Muscle weakness Palpitation Heat intolerance Hair loss Family history of thyroid disease T4, PWEJIoirzby09/15/2025 2:14 PM EDT Chronic fatigue Pain in other joint Muscle weakness Palpitation Heat intolerance Hair loss Family history of thyroid disease PZPIxzlqqk85/15/2025 2:14 PM EDT Chronic fatigue Pain in other joint Muscle weakness Palpitation Heat intolerance Hair loss Family history of thyroid disease VITAMIN B6, DNFEFEAyfpizq60/15/2025 2:14 PM EDT Chronic fatigue Pain in other joint Muscle weakness Palpitation Heat intolerance Hair loss C-REACTIVE XGENCXEFeopixi65/15/2025 2:14 PM EDT Chronic fatigue Pain in other joint Muscle weakness Palpitation Heat intolerance Hair loss URIC LIKDIclpssx05/15/2025 2:14 PM EDT Chronic fatigue Pain in other joint Muscle weakness Palpitation Heat intolerance Hair loss SED RATE BY MODIFIED EKOZJLIGXYQjebnff88/15/2025 2:14 PM EDT Chronic fatigue Pain in other joint Muscle weakness Palpitation Heat intolerance Hair loss COMPREHENSIVE METABOLIC MXYTITlwmyvg89/15/2025 2:14 PM EDT Chronic fatigue Pain in other joint Muscle weakness Palpitation Heat intolerance Hair loss RHEUMATOID UZSGBPYshucpi97/15/2025 2:14 PM EDT Chronic fatigue Pain in other joint Muscle weakness Palpitation Heat intolerance Hair loss PHYLLIS SCREEN W/OGDMHIKyyhrzx74/15/2025 2:14 PM EDT Chronic fatigue Pain in other joint Muscle weakness Palpitation Heat intolerance Hair loss VITAMIN V23Jhoraen37/15/2025 2:14 PM EDT Chronic fatigue Pain in other joint Muscle weakness Palpitation Heat intolerance Hair loss CBC (INCLUDES DIFF/PLT)Mqvtedq9507/22/2025 2:14 PM EDT Chronic fatigue Pain in other joint Muscle weakness Palpitation Heat intolerance Hair loss VITAMIN D 25 HYDROXY BZNILXtthtmf82/08/2025 8:09 AM EDT High serum vitamin D BI MAMMOGRAM SCREENING TOMOSYNTHESIS TTXDONUKRHirgufm00/13/2024 10:47 AM EDT Encounter for screening mammogram for malignant neoplasm of breast from Last 3 Months or Most Recently Relevant to Health Maintenance Results * (ABNORMAL) ANTINUCLEAR ANTIBODIES TITER AND PATTERN (07/22/2025 2:14 PM EDT) ComponentValueRef RangeTest MethodAnalysis TimePerformed AtPathologist SignatureANA TITER1:160(H)titerQUESTComment: ?Reference Range <1:40 Negative ?1:40-1:80 ?Low Antibody Level >1:80 Elevated Antibody Level PHYLLIS PATTERNNuclear, Speckled(A)QUESTComment: Speckled pattern is associated with mixed connective tissue disease (MCTD), systemic lupus erythematosus (SLE), Sjogren's syndrome, dermatomyositis, and systemic sclerosis/polymyositis overlap. AC-2,4,5,29: Speckled International Consensus on PHYLLIS Patterns (https://doi.org/10.1515/efwj-5855-7378) Specimen (Source)Anatomical Location / LateralityCollection Method / Volume Collection TimeReceived Time07/22/2025 2:14 PM EDT1 2:15 PM EDT Narrative Resulting Agency Comment Performing Organization Information ?Site ID: QPT ?Name: [facility] ?Address: [address] [place] [address], [address] [place] [phone] ?Director: Justino Casillas MD Authorizing ProviderResult TypeResult StatusSasara Yousif NPLAB BLOOD ORDERABLESFinal ResultPerforming OrganizationAddressty/[facility]/ZIP CodePhone Number QUEST * Thyroid peroxidase antibody (07/22/2025 2:14 PM EDT)ComponentValueRef Range Test MethodAnalysis TimePerformed AtPathologist SignatureTHYROID PEROXIDASE ANTIBODIES1<9 IU/mLQUESTSpecimen (Source)Anatomical Location / Laterality Collection Method / VolumeCollection TimeReceived TimeBloodVenous blood specimen / Bipcdnp6307/22/2025 2:14 PM EDT1 2:15 PM EDT Narrative Resulting Agency Comment Performing Organization Information ?Site ID: QPT ?Name: [facility] ?Address: [address] [place] [address], [address] [place] [phone] ?Director: Justino Casillas MD Authorizing ProviderResult TypeResult StatusSasara Yousif NPLAB BLOOD ORDERABLESFinal ResultPerforming OrganizationAddressty/State/ZIP CodePhone Number QUEST * Thyroglobulin (07/22/2025 2:14 PM EDT)ComponentValueRef RangeTest Method Analysis TimePerformed AtPathologist SignatureTHYROGLOBULIN ANTIBODIES<1< or = 1 IU/mLQUESTTHYROGLOBULIN8.5ng/mLQUESTComment: ?Reference Range: ?Intact Thyroid ?? 2.8-40.9 Athyrotic <0.1 ?Note: Abnormal flagging is based ?on the reference interval for ?patients with intact thyroid. ? This test was performed using the Ryzing chemiluminescent method. Values obtained from different assay methods cannot be used interchangeably. Thyroglobulin levels, regardless of value, should not be interpreted as absolute evidence of the presence or absence of disease. For additional information, please refer to http://education.[place]/faq/VYJ229 (This link is being provided for informational/ educational purposes only.) Specimen (Source)Anatomical Location / LateralityCollection Method / Volume Collection TimeReceived TimeBloodVenous blood specimen / Yficzfx0307/22/2025 2:14 PM EDT1 2:15 PM EDT Narrative Resulting Agency Comment Performing Organization Information ?Site ID: QPT ?Name: [facility] ?Address: [address] [place] [address], [address] [place] [phone] ?Director: Justino Casillas MD Authorizing ProviderResult TypeResult StatusSasara Yousif LAB BLOOD ORDERABLESFinal ResultPerforming OrganizationAddressCity/State/ZIP CodePhone Number QUEST * Sedimentation rate, automated (07/22/2025 2:14 PM EDT)ComponentValueRef Range Test MethodAnalysis TimePerformed AtPathologist SignatureSED RATE BY MODIFIED KPELJUUEDE97< OR = 20 mm/hQUESTSpecimen (Source)Anatomical Location / LateralityCollection Method / VolumeCollection TimeReceived TimeBloodVenous blood specimen / Gosrdey2707/22/2025 2:14 PM EDT1 2:15 PM EDT Narrative Resulting Agency Comment Performing Organization Information ?Site ID: QPT ?Name: [facility] ?Address: [address] [place], [place] [address] , [address] [place] [phone] ?Director: Justino Casillas MD Authorizing ProviderResult TypeResult StatusSamanromina Yousif NPLAB BLOOD ORDERABLESFinal ResultPerforming OrganizationAddressCity/State/ZIP CodePhone Number QUEST * CBC and differential (07/22/2025 2:14 PM EDT)ComponentValueRef RangeTest MethodAnalysis TimePerformed AtPathologist SignatureWHITE BLOOD CELL COUNT6.1 3.8 - 10.8 Thousand/uLQUESTRED BLOOD CELL COUNT4.583.80 - 5.10 Million/uLQUEST GHDPRABOBN98.311.7 - 15.5 g/sHJYTHFODTUEPJHYN10.935.0 - 45.0 %FDDQZVUR59.780.0 - 100.0 lWLHZLWQQF50.227.0 - 33.0 wsSRITOBOYQ03.332.0 - 36.0 g/dLQUESTComment: For adults, a slight decrease in the calculated MCHC value (in the range of 30 to 32 g/dL) is most likely not clinically significant; however, it should be interpreted with caution in correlation with other red cell parameters and the patient's clinical condition. RDW12.011.0 - 15.0 %QUESTPLATELET FRJGJ986497 - 400 Thousand/uLQUESTMPV9.67.5 - 12.5 fLQUESTABSOLUTE NEUTROPHILS3,3121,500 - 7,800 cells/uLQUESTABSOLUTE LYMPHOCYTES1,498141 - 3,900 cells/uLQUESTABSOLUTE TPVERUMEV297256 - 950 cells/uL QUESTABSOLUTE QGGMMEJMNCH44043 - 500 cells/uLQUESTABSOLUTE HSIFROBZT299 - 200 cells/fQIYSDGNECYUNNLDHU72.3%UMWUCEGBAWTAVCYC79.9%QUESTMONOCYTES7.8%QUEST EOSINOPHILS5.8%QUESTBASOPHILS1.2%QUESTSpecimen (Source)Anatomical Location / LateralityCollection Method / VolumeCollection TimeReceived TimeBloodVenous blood specimen / Rxngnir8607/22/2025 2:14 PM EDT1 2:15 PM EDT Narrative Resulting Agency Comment Performing Organization Information ?Site ID: QPT ?Name: [facility] ?Address: [address] [place] [address], [address] [place], [place] [phone] ?Director: Justino Casillas MD Authorizing ProviderResult TypeResult StatusBarbara Yousif [facility] BLOOD ORDERABLESFinal ResultPerforming OrganizationAddressty/State/ZIP CodePhone Number QUEST * (ABNORMAL) Rheumatoid factor (07/22/2025 2:14 PM EDT)ComponentValueRef Range Test MethodAnalysis TimePerformed AtPathologist SignatureRHEUMATOID JGWLIC246 (H)<14 IU/mLQUESTComment: Results verified by repeat analysis on dilution. Specimen (Source)Anatomical Location / LateralityCollection Method / Volume Collection TimeReceived TimeBloodVenous blood specimen / Smtfxiq9907/22/2025 2:14 PM EDT1 2:15 PM EDT Narrative Resulting Agency Comment Performing Organization Information ?Site ID: QPT ?Name: [facility] ?Address: [address] [place] [address], [address] [place] [address] ?Director: Justino Casillas MD Authorizing ProviderResult TypeResult StatusBarbara Yousif [facility] BLOOD ORDERABLESFinal ResultPerforming OrganizationAddressty/[facility]/ZIP CodePhone Number QUEST * C-reactive protein (07/22/2025 2:14 PM EDT)ComponentValueRef RangeTest Method Analysis TimePerformed AtPathologist SignatureC-REACTIVE PROTEIN<3.0<8.0 mg/L QUESTSpecimen (Source)Anatomical Location / LateralityCollection Method / VolumeCollection TimeReceived TimeBloodVenous blood specimen / Unknown 07/22/2025 2:14 PM EDT1 2:15 PM EDT Narrative Resulting Agency Comment Performing Organization Information ?Site ID: QPT ?Name: [facility] ?Address: [address] [place] [address], [address] [place] [phone] ?Director: Justino Casillas MD Authorizing ProviderResult TypeResult StatusSasara Yousif [facility] BLOOD ORDERABLESFinal ResultPerforming OrganizationAddressCity/State/ZIP CodePhone Number QUEST * (ABNORMAL) PHYLLIS (07/22/2025 [...] indicated. For additional information, please refer to http://education.[employer]ius/faq/VXK440 (This link is being provided for informational/ educational purposes only.) ?? Specimen (Source)Anatomical Location / LateralityCollection Method / Volume Collection TimeReceived TimeBloodVenous blood specimen / Jzcouye4907/22/2025 2:14 PM EDT1 2:15 PM EDT Narrative Resulting Agency Comment Performing Organization Information ?Site ID: QPT ?Name: [facility] ?Address: [address] [place] [address] ?Director: Justino Casillas MD Authorizing ProviderResult TypeResult StatusSasara Yousif [facility] BLOOD ORDERABLESFinal ResultPerforming OrganizationAddressCity/State/ZIP CodePhone Number QUEST * Uric acid (07/22/2025 2:14 PM EDT)ComponentValueRef RangeTest MethodAnalysis TimePerformed AtPathologist SignatureURIC ACID6.52.5 - 7.0 mg/dLQUESTComment: Therapeutic target for gout patients: <6.0 mg/dL ?? Specimen (Source)Anatomical Location / LateralityCollection Method / Volume Collection TimeReceived TimeBloodVenous blood specimen / Mpxxgdr7007/22/2025 2:14 PM EDT1 2:15 PM EDT Narrative Resulting Agency Comment Performing Organization Information ?Site ID: QPT ?Name: [facility] ?Address: [address] [place] [address], [address] [place] [phone] ?Director: Justino Casillas MD Authorizing ProviderResult TypeResult StatusSasara Yousif iZotopeLAB BLOOD ORDERABLESFinal ResultPerforming OrganizationAddAllegheny Valley Hospitalty/State/ZIP CodePhone Number QUEST * T3, free (07/22/2025 2:14 PM EDT)ComponentValueRef RangeTest MethodAnalysis TimePerformed AtPathologist SignatureT3, FREE2.72.3 - 4.2 pg/mLQUESTSpecimen (Source)Anatomical Location / LateralityCollection Method / VolumeCollection TimeReceived TimeBloodVenous blood specimen / Gahvxql2407/22/2025 2:14 PM EDT 07/22/2025 2:15 PM EDT Narrative Resulting Agency Comment Performing Organization Information ?Site ID: QPT ?Name: [facility] ?Address: [address] [place] [phone] ?Director: Justino Casillas MD Authorizing ProviderResult TypeResult StatusSasara Yousif LAB BLOOD ORDERABLESFinal ResultPerforming OrganizationAddAllegheny Valley Hospitalty/[facility] CodePhone Number QUEST * TSH (07/22/2025 2:14 PM EDT)ComponentValueRef RangeTest MethodAnalysis Time Performed AtPathologist SignatureTSH1.60mIU/LQUESTComment: ?Reference Range ? > or = 20 Years 0.40-4.50 ? Ranges ?First trimester ?0.26-2.66 ?Second trimester ?? 0.55-2.73 ?Third trimester ?0.43-2.91 Specimen (Source)Anatomical Location / LateralityCollection Method / Volume Collection TimeReceived TimeBloodVenous blood specimen / Rawwbuu1707/22/2025 2:14 PM EDT1 2:15 PM EDT Narrative Resulting Agency Comment Performing Organization Information ?Site ID: QPT ?Name: [facility] ?Address: [address] [place] [address], [address] [place], [place] [phone] ?Director: Justino Casillas MD Authorizing ProviderResult TypeResult StatusJarretthennyjones Yousif iZotopeLAB BLOOD ORDERABLESFinal ResultPerforming OrganizationAddAllegheny Valley Hospitalty/State/ZIP CodePhone Number QUEST * T4, free (07/22/2025 2:14 PM EDT)ComponentValueRef RangeTest MethodAnalysis TimePerformed AtPathologist SignatureT4, FREE1.20.8 - 1.8 ng/dLQUESTSpecimen (Source)Anatomical Location / LateralityCollection Method / VolumeCollection TimeReceived TimeBloodVenous blood specimen / Zpceqnp8207/22/2025 2:14 PM EDT 07/22/2025 2:15 PM EDT Narrative Resulting Agency Comment Performing Organization Information ?Site ID: QPT ?Name: [facility] ?Address: [address] [place] [address], [address] [place] [address] ?Director: Justino Casillas MD Authorizing ProviderResult TypeResult StatusSaadrianahennyjones [place] Yousif LAB BLOOD ORDERABLESFinal ResultPerforming [facility]AddAl[facility] Hospitalty/[facility] CodePhone Number QUEST * Vitamin B6 (07/22/2025 2:14 PM EDT)ComponentValueRef RangeTest MethodAnalysis TimePerformed AtPathologist SignatureVITAMIN B6, PLASMA8.12.1 - 21.7 ng/mL QUESTComment: Vitamin supplementation within 24 hours prior to blood draw may affect the accuracy of the results. This test was developed and its analytical performance characteristics have been determined by [facility] [place] [place]. It has not been cleared or approved by the U.S. Food and Drug Administration. This assay has been validated pursuant to the CLIA regulations and is used for clinical purposes. ? Specimen (Source)Anatomical Location / LateralityCollection Method / Volume Collection TimeReceived TimeBloodVenous blood specimen / Tsthegd4007/22/2025 2:14 PM EDT1 2:15 PM EDT Narrative Resulting Agency Comment Performing Organization Information ?Site ID: AMD ?Name: [facility] [place] ?Address: [address] [place] [address] [place] ?Director: Wale Weber M.D.,PhD Authorizing ProviderResult TypeResult StatusSasara Yousif NPLAB BLOOD ORDERABLESFinal ResultPerforming OrganizationAddressty/State/ZIP CodePhone Number QUEST * Vitamin B12 (07/22/2025 2:14 PM EDT)ComponentValueRef RangeTest MethodAnalysis TimePerformed AtPathologist SignatureVITAMIN [id number] - 1,100 pg/mLQUEST Specimen (Source)Anatomical Location / LateralityCollection Method / Volume Collection TimeReceived TimeBloodVenous blood specimen / Tlqglwm3907/22/2025 2:14 PM EDT1 2:15 PM EDT Narrative Resulting Agency Comment Performing Organization Information ?Site ID: QPT ?Name: [facility] ?Address: [address] [place] [phone] ?Director: Justino Casillas MD Authorizing ProviderResult TypeResult StatusSasara Yousif NPLAB BLOOD ORDERABLESFinal ResultPerforming OrganizationAddressty/State/ZIP CodePhone Number QUEST * (ABNORMAL) Comprehensive metabolic panel (07/22/2025 2:14 PM EDT)Component ValueRef RangeTest MethodAnalysis TimePerformed AtPathologist SignatureGlucose 8165 - 99 mg/dLQUESTComment: ? Fasting reference interval WNT664 - 25 mg/dLQUESTCreatinine1.00(H)0.50 - 0.99 mg/xNJRKQSRJZI27> OR = 60 mL/min/1.10m2DJMMBOVA/CREATININE THCDN171 - 22 (calc)NRCNSWshyop105895 - 146 mmol/LQUESTPotassium, Bld3.3(L)3.5 - 5.3 mmol/BTHBQMFvoonhfd29868 - 110 mmol/L QUESTCarbon Ouqeudv0599 - 32 mmol/VUGYMCSyhhxdm21.3(H)8.6 - 10.2 mg/dLQUEST PROTEIN, TOTAL8.06.1 - 8.1 g/dLQUESTALBUMIN4.93.6 - 5.1 g/dLQUESTGLOBULIN3.11.9 - 3.7 g/dL (calc)QUESTALBUMIN/GLOBULIN RATIO1.61.0 - 2.5 (calc)QUESTBILIRUBIN, TOTAL0.70.2 - 1.2 mg/dLQUESTALKALINE FUODBFQZGQO3545 - 125 U/AKCMDGPMF0841 - 30 U/WRGFVHVFU440 - 29 U/LQUESTSpecimen (Source)Anatomical Location / Laterality Collection Method / VolumeCollection TimeReceived TimeBloodVenous blood specimen / Nzzcyxc5107/22/2025 2:14 PM EDT1 2:15 PM EDT Narrative Resulting Agency Comment Performing Organization Information ?Site ID: QPT ?Name: [facility] ?Address: [address] [place] [address], [address] [place] [phone] ?Director: Justino Casillas MD Authorizing ProviderResult TypeResult StatusSasara Yousif LAB BLOOD ORDERABLESFinal ResultPerforming OrganizationAddressCity/State/ZIP CodePhone Number QUEST * Vitamin D 25 hydroxy (07/15/2025 8:09 AM EDT)ComponentValueRef RangeTest MethodAnalysis TimePerformed AtPathologist SignatureVITAMIN D,25-[place],TOTAL,IA44 30 - 100 ng/mLQUESTComment: Vitamin D Status ? 25-OH Vitamin D: Deficiency: <20 ng/mL Insufficiency: ? 20 - 29 ng/mL Optimal: > or = 30 ng/mL For 25-OH Vitamin D testing on patients on D2-supplementation and patients for whom quantitation of D2 and D3 fractions is required, the QuestAssureD(TM) 25-OH VIT D, (D2,D3), LC/MS/MS is recommended: order code 26291 (patients >2yrs). See Note 1 Note 1 For additional information, please refer to http://education.eVoter.OfferSavvy/faq/RSW647 (This link is being provided for informational/ educational purposes only.) Specimen (Source)Anatomical Location / LateralityCollection Method / Volume Collection TimeReceived TimeBloodVenous blood specimen / Dvzvjoz2107/15/2025 8:09 AM EDT1 3:56 PM EDT Narrative Resulting Agency Comment Performing Organization Information ?Site ID: QPT ?Name: [facility] ?Address: [address] [place] [address], [address] [place] [phone] ?Director: Justino Casillas MD Authorizing ProviderResult TypeResult StatusDior Alexander MDLAB BLOOD ORDERABLES Final ResultPerforming OrganizationAddressCity/State/ZIP CodePhone Number QUEST * Bilateral screening mammogram with tomosynthesis (12/19/2023 10:47 AM EDT) Anatomical RegionLateralityModalityBreastBilateralMammographySpecimen (Source) Anatomical Location / LateralityCollection Method / VolumeCollection Time Received Time12/19/2023 5:13 PM EDT Impressions 12/20/2023 9:02 AM EDT BIRADS 1 - Negative Follow-up: ??Routine Screening Mamm Board Certified Radiologists. ??Accredited by the ACR and FDA. MAMMOGRAPHY IS VERY IMPORTANT TO YOUR HEALTH. ??THE [place] [employer] GUIDELINES RECOMMEND THAT WOMEN 40 YEARS OF AGE AND OLDER SHOULD HAVE A MAMMOGRAM EVERY YEAR. A REMINDER LETTER WILL BE SENT AT THE APPROPRIATE TIME. ??THIS FACILITY UTILIZES A REMINDER SYSTEM TO ENSURE ALL PATIENTS RECEIVE REMINDER NOTIFICATIONS AT THE APPROPRIATE TIME BASED ON THE RECOMMENDATIONS OF THIS EXAM. THIS INCLUDES REMINDERS FOR ROUTINE SCREENING MAMMOGRAMS, DIAGNOSTIC MAMMOGRAMSIN WHICH THE PATIENT IS ASKED TO RETURN FOR ADDITIONAL VIEWS, OR OTHER BREAST IMAGING INTERVENTIONSWHEN APPROPRIATE. THE PATIENT WILL BE PLACED IN THE APPROPRIATE REMINDER SYSTEM INCLUDING A REMINDER AT THE APPROPRIATE TIME FOR ANY PENDING ADDITIONAL VIEWS. TRANSCRIBED BY: ? ELECTRONICALLY SIGNED BY: Sagar Ramos MD Narrative 12/20/2023 9:02 AM EDT EXAMINATION: BI MAMMOGRAM SCREENING TOMOSYNTHESIS BILATERAL CLINICAL HISTORY:screening COMPARISON: There are no previous mammograms available for comparison. RESULT: Digital mammography and 3D tomosynthesis of bilateral breasts was performed. Density: Scattered fibroglandular density [2] There is no suspicious mass, asymmetry, architectural distortion, or calcification. Procedure Note Sagar Ramos MD - 12/20/2023 EXAMINATION: BI MAMMOGRAM SCREENING TOMOSYNTHESIS BILATERAL CLINICAL HISTORY:screening COMPARISON: There are no previous mammograms available for comparison. RESULT: Digital mammography and 3D tomosynthesis of bilateral breasts wasperformed. Density: Scattered fibroglandular density [2] There is no suspicious mass, asymmetry, architectural distortion, or calcification. IMPRESSION: BIRADS 1 - Negative Follow-up: Routine Screening Mamm Board Certified Radiologists. Accredited by the ACR and FDA. MAMMOGRAPHY IS VERY IMPORTANT TO YOUR HEALTH. THE [place] [employer] GUIDELINES RECOMMEND THAT WOMEN 40 YEARS OF AGE AND OLDER SHOULD HAVE AMAMMOGRAM EVERY YEAR. A REMINDER LETTER WILL BE SENT AT THE APPROPRIATE TIME. THIS FACILITYUTILIZES A REMINDER SYSTEM TO ENSURE ALL PATIENTS RECEIVE REMINDERNOTIFICATIONS AT THE APPROPRIATE TIME BASED ON THE RECOMMENDATIONS OF THISEXAM. THIS INCLUDES REMINDERS FOR ROUTINE SCREENING MAMMOGRAMS, DIAGNOSTICMAMMOGRAMS IN WHICH THE PATIENT IS ASKED TO RETURN FOR ADDITIONAL VIEWS,OR OTHER BREAST IMAGING INTERVENTIONS WHEN APPROPRIATE. THE PATIENT WILLBE PLACED IN THE APPROPRIATE REMINDER SYSTEM INCLUDING A REMINDER AT THEAPPROPRIATE TIME FOR ANY PENDING ADDITIONAL VIEWS. TRANSCRIBED BY: ELECTRONICALLY SIGNED BY: Sagar Ramos MD Authorizing ProviderResult TypeResult StatusSamanjones Yousif NPIMG BI PROCEDURESFinal Result from Last 3 Months or Most Recently Relevant to Health Maintenance Insurance Care Teams Team MemberRelationshipSpecialtyStart DateEnd Date Micheal An MD [address] [place] [address] PCP - GeneralFamily Psjtpgaf07/2/25 Barbara Yousif NP [address] [place] [address] Nurse Practitionermily Medicine12/20/23
--- OUTSIDE RECORDS SUMMARY | 2025-07-29 15:24 | XMS_ITS | Encounter Summary ---
Author Organization [facility] Address [address] [place] [address] Care Team Providers Care Grain Elevator Man Name Role Phone Barbara Yousif COMB FIXER Unavailable [phone] Micheal An MD Primary Care Provider [phone] Encounter Details DateTypeDepartmentCare Team (Latest Contact Info)Wxumbovymnl83/15/2025Travel Social History Tobacco UseTypesPacks/DayYears UsedDateSmoking Tobacco: NeverPassive [...] drinks on one occasion?Never04/06/2025PHQ-2AnswerDate RecordedPatient Health Questionnaire-2 Esdpu998CommentsNoSex and Gender InformationValueDate Recorded Sex Assigned at DoljzTwoqkq85/11/2024 3:14 PM ESTLegal JxeEzrwut97/15/2023 7:00 PM EDTGender TajxoheyQlzzwr66/11/2024 3:14 PM ESTSexual OrientationNot on file documented as of this encounter Plan of Treatment DateTypeDepartmentCare Team (Latest Contact Info)Zsugeskphec56/15/2025 3:30 PM ESTProcedure [place] [phone] Nhan Aleman DO [address] [place] [address] 04/08/2026 1:00 PM EDTOffice Visit [facility] Medicine [address] [place] [phone] Barbara Yousif NP [address] [place], [place] [id number] 08/04/2026 9:00 AM EDTProcedure Visit [facility] [place] [facility] [address] [phone] Virgie Lomax PA [address] [place] [address] documented as of this encounter Visit Diagnoses Not on filedocumented in this encounter Care Teams Team MemberRelationshipSpecialtyStart DateEnd Date Micheal An MD [address] [place], [place] [phone] PCP - GeneralFamily Vhzkjhwg70/2/25 Barbara Yousif NP [address] [place] [address] Nurse PractitionerFamily Medicine12/20/23documented as of this encounter
--- OUTSIDE RECORDS SUMMARY | 2025-07-29 15:24 | XMS_ITS | Clinical Summary ---
Author Organization [facility] Address [address] [place] [address] Phone Care Team Providers Care Sole Cementer Name Role Phone Yousif, Barbara Hernández APRN-THREAD LASTER Primary Care Provi boris Allergies Active AllergyReactionsCriticalityNoted DateCommentsShellfish DerivedAnaphylaxis High08/07/2023 Medications MedicationSigDispense QuantityRefillsLast FilledStart DateEnd DateStatus magnesium oxide (Mag-Ox) 400 mg (241.3 mg magnesium) tablet Take 1 tablet (400 mg) by mouth 2 times a day.Active metoprolol succinate XL (Toprol-XL) 100 mg 24 hr tablet Indications:Essential (primary) hypertension,Paroxysmal atrial fibrillation (Multi),PalpitationTake 1 tablet (100 mg) by mouth once daily. 90 tablet //5Active hydroCHLOROthiazide (Microzide) 12.5 mg tablet Indications:Essential (primary) hypertensionTake 1 tablet (12.5 mg) by mouth once daily. 90 tablet 310/352936/5Active cetirizine (ZyrTEC) 10 mg tablet Take 1 tablet (10 mg) by mouth once daily.Active famotidine (Pepcid) 20 mg tablet Take 1 tablet (20 mg) by mouth once daily in the evening. Take with meals.Active lisinopril 5 mg tablet Indications:Essential hypertensionTake 1 tablet (5 mg) by mouth once daily. 90 tablet 304/28/370579/6Active Active Problems ProblemNoted DateDiagnosed DateBMI 27.0-27.9,adult02/13/2024Never smoked tobacco 02/13/20248291Getusztxauuesw51/08/2024Essential acinktgbshbo21/31/2023Palpitation 08/07/2023aroxysmal atrial gjpxqzmndbep69/31/2023VC (premature ventricular contraction)08/07/2023 Encounters DateTypeDepartmentCare SnqlUbwpgkrbtja27/06/2025Telephone [address] [phone] Timo Logan MD 05/13/2025Telephone [address] [phone] Timo Logan MD 05/06/2025Scanned Document [facility] [address] [place] [phone] Scanning, Generic Provider from Last 3 Months Family History Medical HistoryRelationNameCommentsIron deficiencyBrotherNo Known ProblemsFather No Known ProblemsMotherRelationNameStatusCommentsBrotherFatherMother Social History Tobacco UseTypesPacks/DayYears UsedDateSmoking Tobacco: NeverSmokeless Tobacco: Never Tobacco Cessation:Counseling Given: Not Answered Alcohol UseStandard Drinks/WeekCommentsNever0 (1 standard drink = 0.6 oz pure alcohol)CommentsUnknownSex and Gender InformationValueDate RecordedSex Assigned at BirthNot on fileLegal YanOrakxu59/26/2022 8:55 PM ESTGender Identity Not on fileSexual OrientationNot on file Last Filed Vital Signs Vital SignReadingTime TakenCommentsBlood Wnuruyfa175/8601 2:25 PM EST Wkdgw645710/22/2024 1:44 PM ESTTemperature--Respiratory Rate--Oxygen Saturation-- Inhaled Oxygen Concentration--Eqpfyi35 kg (161 lb)10/22/2024 1:44 PM ESTHeight 162.6 cm (5' 4 )10/22/2024 1:44 PM ESTBody Mass Index27.6401 1:44 PM EST Plan of Treatment Health MaintenanceDue DateLast DoneCommentsHIV Kfqgzxkky1982MMR Vaccines (1 of 1 - Standard series)1983Diabetes Dctmxfrue05/12/2000Hepatitis C Ixyoeebrh07/12/2000Hepatitis B Vaccines (1 of 3 - 19+ 3-dose series)2001 Cervical Cancer Vfwimxtke75/12/2003HPV/Xwbkdz1203/19/2003Pap Smear2003 DTaP/Tdap/Td Vaccines (1 - Tdap)2004HPV Vaccines (1 - 3-dose standard series)03/19/20098864Wclaebvxs00/13/689503/, 12/19/2023Influenza Vaccine (#1) 2025OVID-19 Vaccine ( - season)2025early Adult Physical 510/, 03/25/2024Lipid Panel/04/2024Zoster Vaccines (1 of 2)2032HIB VaccinesAged OutNo longer eligible based on patient's age to complete this topicHepatitis A VaccinesAged OutNo longer eligible based on patient's age to complete this topicIPV VaccinesAged OutNo longer eligible based on patient's age to complete this topicMeningococcal VaccineAged OutNo longer eligible based on patient's age to complete this topicPneumococcal Vaccine: Pediatrics and At-Risk Adult PatientsAged OutNo longer eligible based on patient's age to complete this topicRotavirus VaccinesAged OutNo longer eligible based on patient's age to complete this topic Procedures Procedure NamePriorityDate/TimeAssociated DiagnosisCommentsECHOCARDIOGRAM 05/06/2025 from Last 3 Months Results * Echocardiogram (05/06/2025) Narrative 05/06/2025 Ordered by an unspecified provider. Authorizing ProviderResult TypeResult StatusGeneric Provider ScanningCV ECHO PROCEDURESFinal Result from Last 3 Months Insurance Care Teams Team MemberRelationshipSpecialtyStart DateEnd Date Barbara Yousif, OUTSOLE ROUNDER-THREAD LASTER [address] [phone] PCP - GeneralFamily Medicine02/13/24
--- OUTSIDE RECORDS SUMMARY | 2025-07-29 15:24 | XMS_ITS | Encounter Summary ---
Author Organization [facility] Address [address] [place] [address] Care Team Providers Care Outsole Caser Name Role Phone Barbara Yousif REPAIR MECHANIC Unavailable [phone] Micheal An MD Primary Care Provider [phone] Encounter Details DateTypeDepartmentCare Team (Latest Contact Info)Lidbulsskhs66/15/2025Bamboo flowsheet [facility] Family Medicine [address] [place] [phone] Barbara Yousif NP [address] [place], [place] [phone] Social History Tobacco UseTypesPacks/DayYears UsedDateSmoking Tobacco: NeverPassive [...] drinks on one occasion?Never04/06/2025PHQ-2AnswerDate RecordedPatient Health Questionnaire-2 Vnatn900CommentsNoSex and Gender InformationValueDate Recorded Sex Assigned at DimvnUtqdpu09/11/2024 3:14 PM ESTLegal WprYhbmjt34/15/2023 7:00 PM EDTGender FuzricbyDjsdyg89/11/2024 3:14 PM ESTSexual OrientationNot on file documented as of this encounter Plan of Treatment DateTypeDepartmentCare Team (Latest Contact Info)Iabsbpkkfol03/15/2025 3:30 PM ESTProcedure Visit [facility] [address] [place] [address] [place] [phone] Nhan Aleman DO [address] [place], [place] [phone] 04/08/2026 1:00 PM EDTOffice Visit [facility] [address] [place] [phone] Barbara Yousif NP [address] [place], [place] [phone] 08/04/2026 9:00 AM EDTProcedure Visit DANIELLE TAYLOR [address] [place] [address] [place] [phone] Virgie Lomax PA [address] [facility] [place] [address] documented as of this encounter Visit Diagnoses Not on filedocumented in this encounter Care Teams Team MemberRelationshipSpecialtyStart DateEnd Date Micheal An MD [address] [place], [place] [phone] PCP - GeneralFamily Pdgwqnpu44/2/25 Barbara Yousif NP [address] [place] [phone] Nurse PractitionerFamily Medicine12/20/23documented as of this encounter
--- OUTSIDE RECORDS SUMMARY | 2025-07-29 15:24 | XMS_ITS | Clinical Summary ---
Author Organization [facility] [employer] [facility] tem Address [id number] [address] [place] [address] Care Team Providers Care Graduate Student Instructor Name Role Phone Barbara Yousif APRN-AIRCRAFT POWERPLANT REPAIRER Primary Care Provider Allergies Active AllergyReactionsCriticalityNoted DateCommentsOtherShortness Of BreathHigh 01/24/2017 Seafood Medications MedicationSigDispense QuantityRefillsLast FilledStart DateEnd DateStatus escitalopram (LEXAPRO) 20 mg tablet Indications:Anxiety,Other depressionTake 1 tablet (20 mg total) by mouth once daily for 180 days. 90 tablet Active metoprolol succinate XL (TOPROL-XL) 50 mg 24 hr tablet Indications:Atrial fibrillation (CMS-HCC)Take 1 tablet (50 mg total) by mouth daily for 180 days. 90 tablet Active fluticasone (FLONASE) 50 mcg/actuation nasal spray ADMINISTER 2 SPRAYS INTO EACH NOSTRIL DAILY FOR 3 Bottle Active Active Problems ProblemNoted DateDiagnosed DateAtrial /07/5853Oexhmnd62/07/2017 Ratltgxvkc53/07/2017 Encounters DateTypeDepartmentCare HfqsYsdnftacxxq44/30/2025 7:26 AM EDT - 05/06/2025 11:59 PM EDTHospital Encounter [facility] [address] [place] [phone] PVC (premature ventricular contraction); Palpitation; Paroxysmal atrial fibrillation (CMS-HCC); Mitral valve insufficiency, unspecified etiology Discharge Disposition: Home05/06/2025Travelfrom Last 3 Months Family History Medical HistoryRelationNameCommentsAnxiety disorderMaternal GrandmotherHeart diseaseMaternal GrandmotherHypertensionMaternal GrandmotherStrokeMaternal GrandmotherAnxiety disorderMotherHypertensionMotherRelationNameStatusComments Maternal GrandmotherMother Social History Tobacco UseTypesPacks/DayYears UsedDateSmoking Tobacco: NeverAlcohol UseStandard Drinks/WeekCommentsYes0 (1 standard drink = 0.6 oz pure alcohol)ChildcareAnswer Date CdcfyhfkYsxoivnznNpwclbj94/12/2019EmploymentAnswerDate RecordedEmployment Ndcsnbc2903/19/2019Purpose - LifeAnswerDate RecordedPurpose and direction in life Ipiefvk27/11/2021CommentsUnknownSex and Gender InformationValueDate RecordedSex Assigned at BirthNot on fileLegal YxnJkhzey52/06/2015 11:34 AM EDT Gender IdentityNot on fileSexual OrientationNot on file Last Filed Vital Signs Vital SignReadingTime TakenCommentsBlood Lgquphbp712/8606 1:45 PM EDT Fjqle2840/07/2017 1:45 PM EDTTemperature--Respiratory Rate--Oxygen Saturation-- Inhaled Oxygen Concentration--Yqbsug60.8 kg (145 lb)03/14/2017 1:45 PM EDTHeight 163.8 cm (5' 4.5 )03/14/2017 1:45 PM EDTBody Mass Index24.506 1:45 PM EDT Plan of Treatment Health MaintenanceDue DateLast DoneCommentsDepression Aqapidcug70/12/1994Tobacco Cndojjpuy95/12/1994Adult BMI Wthyykmcq68/12/2000DTaP,Tdap and Td Vaccines (1 - Tdap)2001Pap Smear2003Influenza Tqvhljv5406/08/2025 Medical Devices Not on file Procedures Procedure NamePriorityDate/TimeAssociated DiagnosisCommentsECHO COMPLETE WO HETBYMSAWbazvue08/30/2025 8:16 AM EDT PVC (premature ventricular contraction) Palpitation Paroxysmal atrial fibrillation (CMS-HCC) Mitral valve insufficiency, unspecified etiology from Last 3 Months Results * Echo complete W/O contrast (05/06/2025 8:16 AM EDT)ComponentValueRef RangeTest MethodAnalysis TimePerformed AtPathologist SignatureLVOT stroke xaicja05.35ml XCELERALV Systolic Upshjb01.04sNLIBCWXIEP24%HTVWLTTVR4790 - 44 %XCELERALV Diastolic Wqjeyg48.62kBQRMCRURLYDMk2.65caOCJUHCKJQSSo7.06arOEAWCNRJFV2.900.6 - 1.1 cmXCELERAPW1.000.6 - 1.1 cmXCELERALVOT diameter2.65okUXQEIXVQFV3.85cm/s XCELERAMV TDI E' (medial)5.98cm/sXCELERAE/A ratio1.39XCELERAE wave deceleration dvhp393.00msecXCELERAMV Peak E Vel70.30cm/sXCELERAMV Peak A Torres 50.40cm/sXCELERALA size3.00cmXCELERAAortic root3.20cmXCELERARV diastolic dimension (basal)31.0mmXCELERARVID d2.0cgFRFANHFWQKZS9.06cmXCELERAAV peak torres 115.00cm/sXCELERALVOT peak vel0.87m/sXCELERAAV VTI25.50cmXCELERALVOT peak VTI 17.30cmXCELERAAV mean gradient3.00mmHgXCELERAAV peak gradient5.29mmHgXCELERAAV valve area2.13XCELERAValve area - Index1.2XCELERAMV pressure 1/2 time62.00ms XCELERAMV valve area p 1/2 method3.45rp8KXCLVGBAG Peak Vel2.0m/sXCELERATR peak .68mmHgXCELERAPV mean gradient2.00mmHgXCELERAPV peak gradient3.59 mmHgXCELERALV ESV A2C44.90mLXCELERALV ESV A4C31.80mLXCELERALV RWT 2D48.78 XCELERAEcho EF Fkrxeforz89%XCELERAAV Velocity Ratio0.68XCELERALeft Ventricle Kyho346.387977599780574hYJOCVDXPjojimxxqtvpgnfe Septum Diastolic Thickness by 7G8jmADSQDVUCO Volume Index26.4mL/g8LKSSJPVSU max vel2.00m/sXCELERAE/E' ratio 11.00XCELERAMV E' average6.4cm/sXCELERAEst. RA mgglbaba1zaQvQCREBBATO area10.0 gq5KFJNHKOYZ Peak Systolic Iojeyrtc42kaHlUYHIDOEQdtfkueyvr RegionLaterality ModalityChestN/AUltrasoundSpecimen (Source)Anatomical Location / Laterality Collection Method / VolumeCollection TimeReceived Time Narrative 05/06/2025 11:53 AM EDT Left Ventricle: Left ventricle appears normal in size. Wall thickness is normal. Systolic function is normal with an ejection fraction of 55-60%. The quantitative EF by 2D Solomon biplane is 50%. There is hypokinesis of the mid to distal anterolateral and inferolateral rush. ?? See wall score diagram for wall motion abnormalities. Normal diastolic function is present. Lateral E' is 6.85 cm/s. Medial E' is 5.98 cm/s. Average E' is 6.4 cm/s. ?Right??Ventricle: Right ventricular size appears normal. The right ventricular basal diameter is 31.0 mm. Normal tricuspid annular plane systolic excursion. Normal systolic excursion velocity by TDI (>9.5 cm/s). ?Mild mitral regurgitation, otherwise no significant valvular pathology Left Ventricle Left ventricle appears normal in size. Wall thickness is normal. Systolic function is normal with an ejection fraction of 55-60%. The quantitative EF by 2D Solomon biplane is 50%. There is hypokinesis of the mid to distal anterolateral and inferolateral rush. See wall score diagram for wall motion abnormalities. Normal diastolic function is present. Lateral E' is 6.85 cm/s. Medial E' is 5.98 cm/s. Average E' is 6.4 cm/s. Right Ventricle Right ventricular size appears normal. The right ventricular basal diameter is 31.0 mm. Normal tricuspid annular plane systolic excursion. Normal systolic excursion velocity by TDI (>9.5 cm/s). Left Atrium Left atrium volume index is normal. The left atrial volume index is 26.4 mL/m2. Right Atrium Right atrium is normal in size. The right atrial area is 10.0 cm2. IVC/SVC The right atrial pressure is estimated at 3 mmHg. There is normal collapse with deep inspiration. Mitral Valve The leaflets are mildly thickened. There is mild to moderate regurgitation. There is no evidence ofmitral valve stenosis. Tricuspid Valve Tricuspid valve appears to be normal. There is trace to mild regurgitation. There is no evidence oftricuspid valve stenosis. RVSP calculated at 19 mmHg. RVSP is based on RA pressure of 3 mmHg. Aortic Valve The aortic valve is trileaflet. There is trace regurgitation. There is no evidence of aortic valve stenosis. Pulmonic Valve The pulmonic valve was not well visualized. Pulmonic valve structure is grossly normal. There is trace regurgitation. There is no evidence of pulmonic valve stenosis. The peak gradient is 3.59 mmHg. The mean gradient is 2.00 mmHg. Ascending Aorta The aortic root is normal in size. Pericardium The pericardium appears normal. Study Details A complete echo was performed using complete 2D, color flow Doppler and spectral Doppler. Overall the study quality was adequate. The study was difficult due to patient's respiration. BP 136/85 Wall Scoring Baseline Score Index: 1.18 The following segments are hypokinetic: mid inferolateral, mid anterolateral and apical lateral. All other segments are normal. Authorizing ProviderResult TypeResult StatusSamatteawan state hospital for the criminally insanejones Yousif PACKING SUPERVISOR-CNPCV ECHO ORDERABLESFinal Result from Last 3 Months Insurance Care Teams Team MemberRelationshipSpecialtyStart DateEnd Date Barbara Yousif APRN-CASSANDRA [address] [place] [address] PCP - GeneralFamily Medicine05/01/25
--- OUTSIDE RECORDS SUMMARY | 2025-07-29 15:24 | XMS_ITS | Encounter Summary ---
Author Organization [facility] Address [address] [place] [address] Care Team Providers Care Admissions Nurse Name Role Phone Barbara Yousif CASING RUNNER Unavailable [phone] Micheal An MD Primary Care Provider [phone] Reason for Referral * Consultation (Routine) - AuthorizedSpecialtyDiagnoses / ProceduresReferred By ContactReferred To ContactRheumatology Diagnoses Positive PHYLLIS (antinuclear antibody) Elevated rheumatoid factor Procedures MO OFFICE/OUTPATIENT NEW HIGH MDM 60 MINUTES Barbara Yousif NP [address] [place] [address] Phone: tel: fax: Yovany Alfaro MD [address] [facility] Professional building [address] [place] [phone] Phone: tel: fax: Referral IDStatusReasonStart DateExpiration DateVisits RequestedVisits [id number] Specialty Services Required / Encounter Details DateTypeDepartmentCare Team (Latest Contact Info)Adjbkayoiqm63/22/2025Results [facility] [address] [place] [phone] Brenda Werner MA CBC and differential, Vitamin B12, PHYLLIS, Additional followed-up results: 12 Social History Tobacco UseTypesPacks/DayYears UsedDateSmoking Tobacco: NeverPassive [...] drinks on one occasion?Never04/06/2025PHQ-2AnswerDate RecordedPatient Health Questionnaire-2 Fpiyu714CommentsNoSex and Gender InformationValueDate Recorded Sex Assigned at TjlsjBkrrbs43/11/2024 3:14 PM ESTLegal VbeGyzidd32/15/2023 7:00 PM EDTGender DctbtusgClmhkq61/11/2024 3:14 PM ESTSexual OrientationNot on file documented as of this encounter Plan of Treatment DateTypeDepartmentCare Team (Latest Contact Info)Umzajowloro74/15/2025 3:30 PM ESTProcedure Visit DANIELLE TAYLOR [address] [place] [address] [place] [address] Nhan Aleman DO [address] [place], [place] [id number] 04/08/2026 1:00 PM EDTOffice Visit [facility] [address] [place] [phone] Barbara Yousif, RENETTA [address] [place], [place] [id number] 08/04/2026 9:00 AM EDTProcedure Visit DANIELLE TAYLOR [address] [place] [address] [place] [address] Virgie Lomax PA [address] [place] [address] NameTypePriorityAssociated DiagnosesOrder ScheduleAmbulatory referral to RheumatologyOutpatient ReferralRoutine Positive PHYLLIS (antinuclear antibody) Elevated rheumatoid factor Expected: 07/29/2025 (Approximate), Expires: 01/27/2026documented as of this encounter Visit Diagnoses Diagnosis Positive PHYLLIS (antinuclear antibody) Other and unspecified nonspecific immunological findings Elevated rheumatoid factor Other and unspecified nonspecific immunological findings documented in this encounter Care Teams Team MemberRelationshipSpecialtyStart DateEnd Date Micheal An MD [address] [place], [place] [phone] PCP - GeneralFamily Uzsjexjj35/2/25 Barbara Yousif NP [address] [place], [place] [phone] Nurse PractitionerFamily Medicine12/20/23documented as of this encounter
[2025-08-02 16:08] LABS: Age Gdln ACOG Testing Note (.); IGP, Aptima HPV, rfx 16/18,45 Note (.)
== END 2025-07-29 15:16 | disposition home or self-care (01) ==
LOC: LAB 15:15
PROVIDERS: Visit Provider Physician Assistant
DX: Z01.419 Encounter for gynecological examination (general) (routine) without abnormal findings (principal)
CPT/HCPCS: 87624; 88175

== ENCOUNTER 2025-09-21 08:59 | Outpatient (REF) | payer BC, SELFPAY ==
--- OUTSIDE RECORDS SUMMARY | 2025-09-21 15:30 | XMS_ITS | Encounter Summary ---
Author Organization [facility] Address [address] [place] [address] Care Team Providers Care Supervisor Pipeline Name Role Phone Barbara Yousif PHYSICAL THERAPY COORDINATOR Unavailable Micheal An MD Primary Care Provider [phone] Reason for Visit * ReasonCommentsPre-op Visit Encounter Details DateTypeDepartmentCare Team (Latest Contact Info)Pcomxrrsfrn54/15/2025 3:30 PM ESTProcedure Visit [facility] [place] [facility] [address] [facility] [address] Nhan Aleman DO [address] [facility] [address] [place], [facility]11 Pre-op examination; Menorrhagia with regular cycle; Pelvic pain in female; Dysmenorrhea; Dyspareunia, female Social History Tobacco UseTypesPacks/DayYears UsedDateSmoking Tobacco: NeverPassive [...] drinks on one occasion?Never04/06/2025PHQ-2AnswerDate RecordedPatient Health Questionnaire-2 Jajah797CommentsNoSex and Gender InformationValueDate Recorded Sex Assigned at EryjbBijqjg25/11/2024 3:14 PM ESTLegal KxwOdoffq71/15/2023 7:00 PM EDTGender VhnqyrjjDxqyez12/11/2024 3:14 PM ESTSexual OrientationNot on file documented as of this encounter Last Filed Vital Signs Vital SignReadingTime TakenCommentsBlood Nxoqklpq424/8609/21/2025 3:52 PM EST Pulse--Temperature--Respiratory Rate--Oxygen Saturation--Inhaled Oxygen Concentration--Uhqjiy96.1 kg (123 lb 12 oz)09/21/2025 3:52 PM ESTHeight--Body Mass Index20.75004/06/2025 2:17 PM EDTdocumented in this encounter Progress Notes * Comfort Lundy - 09/21/2025 3:30 PM ESTAssociated Order(s): Endometrial biopsy Post-Procedure Diagnose(s): Menorrhagia with regular cycle; Pelvic pain in female Reason for Appointment: Patient ID: Rosie Sandhu is a 45 y.o. female who presents for Pre-op Visit Patient presents today for a Pre Op/Endometrial Biopsy appointment. Patient is scheduled to undergoDa Janel assisted Laparoscopic Hysterectomy, possible exploratory laparotomy, possible BSO, possible cystoscopy on 10/21/[address] Aleman at [facility]. appointment. MEDICATIONS Current Outpatient Medications Medication Instructions ALPRAZolam (XANAX) 0.5 mg, Oral, Daily PRN cetirizine (ZyrTEC) 10 MG tablet Take by mouth EPINEPHrine (EPIPEN) 0.3 mg, Injection, As needed, Call 911 after use. famotidine (PEPCID) 20 mg, Daily hydroCHLOROthiazide (HYDRODIURIL) 12.5 mg, Daily magnesium oxide (MAG-OX) 400 mg, Daily metoprolol succinate XL (TOPROL-XL) 200 mg, Oral, Daily ALLERGIES Allergies Allergen Reactions Other Shortness [...] SYSTEMS Review of Systems: Review of Systems Constitutional: Negative. HENT: Negative. Eyes: Negative. Respiratory: Negative. Cardiovascular: Negative. Gastrointestinal: Negative. Genitourinary: Positive for dyspareunia, menstrual problem and pelvic pain. Musculoskeletal: Negative. Skin: Negative. Neurological: Negative. All other systems reviewed and are negative. Hematological: Negative. Endocrine: Negative. Allergic/Immunologic: Negative. OBJECTIVE Objective: Physical Exam Constitutional: Appearance: Normal appearance. She is well-developed. Genitourinary: Vulva normal. Cardiovascular: Rate and Rhythm: Normal rate and regular rhythm. Pulmonary: Effort: Pulmonary effort is normal. Breath sounds: Normal breath sounds. Abdominal: General: Bowel sounds are normal. There is no distension. Palpations: Abdomen is soft. Tenderness: There is no abdominal tenderness. There is no guarding or rebound. Musculoskeletal: General: No swelling. Normal range of motion. Right lower leg: No edema. Left lower leg: No edema. Neurological: Mental Status: She is alert and oriented to person, place, and time. Skin: General: Skin is warm and dry. Psychiatric: Mood and Affect: Mood normal. Behavior: Behavior normal. Vitals and nursing note reviewed. Exam conducted with a environmental lawyer present. Vitals: Estimated body mass index is 20.75 kg/m?? as calculated from the following: Height as of 04/06/25: 5' 4.75 . Weight as of this encounter: 123 lb 12 oz. BP: 130/86 No LMP recorded. ASSESSMENT & PLAN Encounter Diagnosis: ICD-10-CM 1. Pre-op examination Z01.818 POCT , urine manually resulted Tissue exam 2. Menorrhagia with regular cycle N92.0 POCT , urine manually resulted Tissue exam 3. Pelvic pain in female R10.20 POCT , urine manually resulted Tissue exam 4. Dysmenorrhea N94.6 POCT , urine manually resulted Tissue exam 5. Dyspareunia, female N94.10 POCT , urine manually resulted Tissue exam Endometrial biopsy Date/Time: 09/21/2025 4:08 PM Performed by: Nhan Aleman DO Authorized by: Nhan Aleman DO Consent: Consent obtained: written Consent given by: patient Risks discussed: bleeding and infection Alternatives discussed: alternative treatment Patient agrees, verbalizes understanding, and wants to proceed: yes Procedure explained and questions answered to patient or proxy's satisfaction: yes Indications: Indications: other menstrual disorder Pre-procedure: Urine test: negative Procedure: A bimanual exam was performed: no Prepped with: none Tenaculum used: yes A local block was performed: no Local anesthetic: none Number of passes: 1 Findings: Cervix: normal Specimen collected: specimen collected and sent to pathology Patient tolerance: tolerated well, no immediate complications Assessment/Plan EMBX: Patient was placed in dorsal lithotomy position with feet in stirrups. A sterile speculum was placed into the vagina and the cervix was visualized. The cervix was grasped with a single tooth tenaculum. The endometrial pipette was placed through the cervix into the uterus, endometrial curettage was performed and sampling was obtained, endometrial curettings were placed in formalin, and single tooth tenaculum was removed. Excellent hemostasis was assured. All instruments were removed from vagina. Pre Op: Patient is doing well but has complaints of pelvic pain, dyspareunia, dysmenorrhea, and menorrhagia. I have discussed conservative management vs. surgical management with the patient in detail and patient desires surgical management at this time. Patient will undergo Da Janel assisted Laparoscopic H ysterectomy, possible exploratory laparotomy, possible BSO, possible cystoscopy on 10/21/2025. Surgical consents were signed, mmc was reviewed, and patient is to proceed to [facility] OR. Follow Up: Patient is to follow up at 1 & 6 weeks post operative to assess proper healing and recovery from procedure. Documented by Nellie Maria LP on behalf of: Nhan Aleman DO documented in this encounter Plan of Treatment DateTypeDepartmentCare Team (Latest Contact Info)Iefrzkdkldf36/02/2026 1:00 PM EDTOffice Visit [facility] [address] [place] [phone] Barbara Yousif, PHYSICAL THERAPY COORDINATOR [address] [place], [place] [phone] 08/04/2026 9:00 AM EDTProcedure Visit DANIELLE TAYLOR [address] [facility] [place] [phone] Virgie Lomax PA [address] [facility] [address] [place], [place] [id number] NameTypePriorityAssociated DiagnosesOrder ScheduleTissue examPathology and CytologyRoutine Pre-op examination Menorrhagia with regular cycle Pelvic pain in female Dysmenorrhea Dyspareunia, female Ordered: 09/21/2025documented as of this encounter Procedures Procedure NamePriorityDate/TimeAssociated DiagnosisCommentsENDOMETRIAL BIOPSY Lzzcxhj8709/21/2025 4:08 PM EST Menorrhagia with regular cycle Pelvic pain in female POCT , QEJZTXwiiaap51/15/2025 4:03 PM EST Pre-op examination Menorrhagia with regular cycle Pelvic pain in female Dysmenorrhea Dyspareunia, female documented in this encounter Results * Endometrial biopsy (09/21/2025 4:08 PM EST) Narrative Comfort Lundy - 09/21/2025 4:08 PM EST Comfort Lundy 09/22/2025 3:22 PM Endometrial biopsy Date/Time: 09/21/2025 4:08 PM Performed by: Nhan Aleman DO Authorized by: Nhan Aleman DO ?? Consent: ??Consent obtained: written ??Consent given by: patient ??Risks discussed: bleeding and infection ??Alternatives discussed: alternative treatment ??Patient agrees, verbalizes understanding, and wants to proceed: yes ?Procedure explained and questions answered to patient or proxy's satisfaction: yes ?? Indications: ??Indications: other menstrual disorder ?? Pre-procedure: ??Urine test: negative ?? Procedure: ??A bimanual exam was performed: no ?Prepped with: none ??Tenaculum used: yes ?A local block was performed: no ?Local anesthetic: none ??Number of passes: 1 Findings: ??Cervix: normal ?Specimen collected: specimen collected and sent to pathology ?Patient tolerance: tolerated well, no immediate complications Authorizing ProviderResult TypeResult StatusNhan [facility]/B[facility]IDE ORDERABLESFinal Result * POCT , urine manually resulted (09/21/2025 4:03 PM EST)ComponentValue Ref RangeTest MethodAnalysis TimePerformed AtPathologist SignaturePreg Test, UrNegativeNegativeSpecimen (Source)Anatomical Location / LateralityCollection Method / VolumeCollection TimeReceived VvnuDvrtm06/15/2025 4:03 PM EST Narrative Authorizing ProviderResult TypeResult StatusNhan Aleman DOPOINT OF CARE TEST ENTER/EDIT ORDERABLESFinal Result documented in this encounter Visit Diagnoses Diagnosis Pre-op examination Menorrhagia with regular cycle Pelvic pain in female Unspecified symptom associated with female genital organs Dysmenorrhea Dyspareunia, female documented in this encounter Care Teams Team MemberRelationshipSpecialtyStart DateEnd Date Micheal An MD [address] [facility]Kim[facility]ly[place], [place] [phone] PCP - GeneralFamily Wvqjqyde56/2/25 Barbara Yousif NP [address] [place], [place] [phone] Nurse PractitionerFamily Medicine12/20/23documented as of this encounter
--- OUTSIDE RECORDS SUMMARY | 2025-09-25 09:03 | XMS_ITS | Clinical Summary ---
Author Organization [facility] Address [address] [place] [address] Care Team Providers Care Combat Systems Operator Name Role Phone Barbara Yousif IMPORT/EXPORT ADMINISTRATOR Unavailable [phone] Micheal An MD Primary Care Provider Allergies Active AllergyReactionsCriticalityNoted PgfiIaqjtixrLmlaxmpqlgwc28/30/2025 Muscle aches OtherShortness of dqiyhwJwfp05/19/2017 Seafood Shellfish Hbxeszl4707/17/2022hellfish Protein-Containing Drug ProductsAnaphylaxis High08/07/2023 Medications MedicationSigDispense QuantityRefillsLast FilledStart DateEnd DateStatus metoprolol succinate XL (Toprol-XL) 100 MG 24 hr tablet Take 200 mg by mouth DailyActive hydroCHLOROthiazide (HYDRODiuril) 12.5 [...] repeat x 1 if needed) 2 tablet 5Active Active Problems ProblemNoted DateDiagnosed DateChronic cough07/22/2025Mitral valve insufficiency 04/06/20259838Kcpcpmdbvgkkyu60/23/4900Xvuoucondqs31/26/2024Gastroesophageal reflux disease without bitfkguddlj93/25/2024Never smoked gpngyfb7402/13/2024Hypertension 5931Zcmynrqvxiw66/31/4572Eacefhn02/07/5355Zaybfjmdah03/07/2017Paroxysmal atrial orsymhniypqo73/01/2014 Overview (12/11/2023): Last Assessment & Plan: History of AF ablation Continue Apixaban this AM PVC (premature ventricular contraction)11/07/2013 Overview (12/11/2023): Last Assessment & Plan: History of PVC ablation in [place] last year. Follow up Holter with >11K [...] DateDiagnosed DateResolved DateBMI 27.0-27.9,adult02/13/2024 04/06/2025 Encounters DateTypeDepartmentCare DbuqNbtilakjejz73/19/2025Results [facility] [address] [place] [address] Brenda Werner, JAIME Basic metabolic panel, Urinalysis with reflex microscopic (clean catch) 09/21/2025 3:30 PM ESTProcedure Visit [facility]OM[facility]celyn [facility] [address] [place] [address] [place] [address] Nhan Aleman, Pre-op examination; Menorrhagia with regular cycle; Pelvic pain in female; Dysmenorrhea; Dyspareunia, ymjxdd4409/21/2025bstract DANIELLE TAYLOR [address] [place] [phone] Nhan Aleman DO 09/17/2025Orders Only [facility] [address] [place] [place] [phone] Brenda Werner MA 08/12/2025 11:00 AM ESTAncillary Procedure [facility] [address] [place] [address] Irregular periods/menstrual cycles; Pain in female genitalia on fpqwjeiwhno36/05/3697Bzvtlx77/05/2025Orders Only [facility] OBGYN [address] [place] [address] Lucina Crockett LPN 07/29/2025 10:00 AM EDTOffice Visit [facility] [address] [place] [address] Virgie Lomax PA Well woman exam with routine gynecological exam; Breast cancer screening by mammogram; Irregular periods/menstrual cycles; Pain in female genitalia on intercourse; Cyxvjyxwctn14/22/2025linisync Result Encounter [facility] External Department Unsolicited Virgie Lomax PA 07/29/2025Results Follow-Up [facility] [address] [place] [place] [phone] Brenda Werner MA CBC and differential, Vitamin B12, PHYLLIS, Additional followed-up results: 12 07/22/2025 1:30 PM EDTOffice Visit [facility] [address] [facility] [place] [phone] Barbara Yousif, RENETTA Chronic fatigue (Primary Dx); Pain in other joint; Muscle weakness; Palpitation; Primary hypertension; Paroxysmal atrial fibrillation (HCC); PVC (premature ventricular contraction); Mitral valve insufficiency, unspecified etiology; Heat intolerance; Hair loss; Shortness of breath; Family history of lung disease; Chronic cough; Anxiety about health; Screening for skin cancer; Family history of thyroid snotuau46/15/2025Bamboo flowsheet [facility] [address] [place] [address] Barbara Yousif NP 07/22/2025Travelfrom Last 3 Months Family History Medical HistoryRelationNameCommentsCrohn's [...] drinks on one occasion?Never04/06/2025PHQ-2AnswerDate RecordedPatient Health Questionnaire-2 Gwzoz387CommentsNoSex and Gender InformationValueDate RecordedSex Assigned at GtwnwRcctfb76/11/2024 3:14 PM ESTLegal VydCgtnby24/15/2023 7:00 PM EDTGender CbwwdvzlGgvyel99/11/2024 3:14 PM ESTSexual OrientationNot on file Last Filed Vital Signs Vital SignReadingTime TakenCommentsBlood Czwrceyn096/8612 3:52 PM EST Frbbt986507/22/2025 1:22 PM EDTTemperature--Respiratory Rate--Oxygen Saturation-- Inhaled Oxygen Concentration--Jweikd05.1 kg (123 lb 12 oz)09/21/2025 3:52 PM EST Syazzh773.5 cm (5' 4.75 )04/06/2025 2:17 PM EDTBody Mass Index20.75004/06/2025 2:17 PM EDT Plan of Treatment DateTypeDepartmentCare Team (Latest Contact Info)Hoyetfnjixa71/02/2026 1:00 PM EDTOffice Visit [facility] Medicine [address] [place] [address] Barbara Yousif NP [address] [place] [address] 08/04/2026 9:00 AM EDTProcedure Visit [facility] [address] [place] [address] Virgie Lomax PA [address] [place], [place] [phone] Health MaintenanceDue DateLast DoneCommentsPneumococcal Vaccine: Pediatrics (0 to 5 Years) and At-Risk Patients (6 to 64 Years) (1 of 2 - PCV)2001 HPV/Aikxzg8403/19/20120626Zzdebicuy39/13/4COVID-19 Vaccine ( - 2024- season)2025Influenza Vaccine (#1)5Cervical Cancer Screening 07/29/2028Pap Smear Procedures Procedure NamePriorityDate/TimeAssociated DiagnosisCommentsURINALYSIS REFLEX Ztnniml4609/24/2025 1:01 PM EST Elevated serum creatinine Dark urine BASIC METABOLIC BZBZWAiwcnqb45/18/2025 1:01 PM EST Elevated serum creatinine Dark urine ENDOMETRIAL TMQKSTOqmssyq14/15/2025 4:08 PM EST Menorrhagia with regular cycle Pelvic pain in female POCT , XFSHIQcgnoxo69/15/2025 4:03 PM EST Pre-op examination Menorrhagia with regular cycle Pelvic pain in female Dysmenorrhea Dyspareunia, female US PELVIC COMPLETE W/ ZRLnxavpb82/05/2025 11:14 AM EST Irregular periods/menstrual cycles Pain in female genitalia on intercourse IGP,APTIMA HPV,AGE FHAXFcsvfoi05/22/2025 9:51 AM EDT PAP TEST, XVGSWGFXHmcuggc71/22/2025 12:00 AM EDTANTINUCLEAR ANTIBODIES TITER AND ACHFFBZKzenqbo12/15/2025 2:14 PM EDT T3, JYJSHsrkngj72/15/2025 2:14 PM EDT Chronic fatigue Pain in other joint Muscle weakness Palpitation Heat intolerance Hair loss Family history of thyroid disease THYROID PEROXIDASE THTESQZXVKMyjzyye21/15/2025 2:14 PM EDT Chronic fatigue Pain in other joint Muscle weakness Palpitation Heat intolerance Hair loss Family history of thyroid disease YETOIWTTTDMTDRhquguv15/15/2025 2:14 PM EDT Chronic fatigue Pain in other joint Muscle weakness Palpitation Heat intolerance Hair loss Family history of thyroid disease T4, GBCTRsxcxyr99/15/2025 2:14 PM EDT Chronic fatigue Pain in other joint Muscle weakness Palpitation Heat intolerance Hair loss Family history of thyroid disease ZQQGfrfgfz53/15/2025 2:14 PM EDT Chronic fatigue Pain in other joint Muscle weakness Palpitation Heat intolerance Hair loss Family history of thyroid disease VITAMIN B6, ZKWYBKEcpvewr95/15/2025 2:14 PM EDT Chronic fatigue Pain in other joint Muscle weakness Palpitation Heat intolerance Hair loss C-REACTIVE INFPGYAPiyncnu59/15/2025 2:14 PM EDT Chronic fatigue Pain in other joint Muscle weakness Palpitation Heat intolerance Hair loss URIC AKKNUinaswv45/15/2025 2:14 PM EDT Chronic fatigue Pain in other joint Muscle weakness Palpitation Heat intolerance Hair loss SED RATE BY MODIFIED ZBORPDPJJMDymdhhb71/15/2025 2:14 PM EDT Chronic fatigue Pain in other joint Muscle weakness Palpitation Heat intolerance Hair loss COMPREHENSIVE METABOLIC SSKHQPdhinhl11/15/2025 2:14 PM EDT Chronic fatigue Pain in other joint Muscle weakness Palpitation Heat intolerance Hair loss RHEUMATOID VJBFPNJmthejg58/15/2025 2:14 PM EDT Chronic fatigue Pain in other joint Muscle weakness Palpitation Heat intolerance Hair loss PHYLLIS SCREEN W/LGZDKZQfzvdph82/15/2025 2:14 PM EDT Chronic fatigue Pain in other joint Muscle weakness Palpitation Heat intolerance Hair loss VITAMIN U80Gkowiss97/15/2025 2:14 PM EDT Chronic fatigue Pain in other joint Muscle weakness Palpitation Heat intolerance Hair loss CBC (INCLUDES DIFF/PLT)Rgtxtek6607/22/2025 2:14 PM EDT Chronic fatigue Pain in other joint Muscle weakness Palpitation Heat intolerance Hair loss VITAMIN D 25 HYDROXY VWMRISyapsxv39/08/2025 8:09 AM EDT High serum vitamin D BI MAMMOGRAM SCREENING TOMOSYNTHESIS WBZLRIQENCiualdz71/13/2024 10:47 AM EDT Encounter for screening mammogram for malignant neoplasm of breast from Last 3 Months or Most Recently Relevant to Health Maintenance Results * (ABNORMAL) Urinalysis with reflex microscopic (clean catch) (09/24/2025 1:01 PM EST)ComponentValueRef RangeTest MethodAnalysis TimePerformed AtPathologist SignatureCOLORYELLOWYELLOWQUESTAPPEARANCECLEARCLEARQUESTSPECIFIC GRAVITY1.015 1.001 - 1.375FYOYKMZ1.05.0 - 8.0QUESTGLUCOSENEGATIVENEGATIVEQUESTBILIRUBIN NEGATIVENEGATIVEQUESTKETONESTRACE(A)NEGATIVEQUESTOCCULT BLOODNEGATIVENEGATIVE QUESTPROTEINNEGATIVENEGATIVEQUESTNITRITENEGATIVENEGATIVEQUESTLEUKOCYTE ESTERASENEGATIVENEGATIVEQUESTSpecimen (Source)Anatomical Location / Laterality Collection Method / VolumeCollection TimeReceived TimeUrineUrine specimen obtained by clean catch procedure / Awgznkk8709/24/2025 1:01 PM EST09/24/2025 1:02 PM EST Narrative Resulting Agency Comment Performing Organization Information ?Site ID: QPT ?Name: [facility] ?Address: [address] [place] [address], [address] [place] [phone] ?Director: Justino Casillas MD Authorizing ProviderResult TypeResult StatusSamanromina Yousif NPLAB URINE ORDERABLESFinal ResultPerforming OrganizationAddressCity/State/[facility] CodePhone Number QUEST * Basic metabolic panel (09/24/2025 1:01 PM EST)ComponentValueRef RangeTest MethodAnalysis TimePerformed AtPathologist FcdmwavfqKueherp0334 - 99 mg/dL QUESTComment: ? Fasting reference interval VCX751 - 25 mg/dLQUESTCreatinine0.960.50 - 0.99 mg/pSEBALXZKUX79> OR = 60 mL/min/1.31p6CBUWNMNX/CREATININE RATIOSEE NOTE: (calc)QUESTComment: ?? Not Reported: BUN and Creatinine are within ?? reference range. ? Jagkyl620425 - 146 mmol/LQUESTPotassium, Bld4.13.5 - 5.3 mmol/IUJBOWLqhcmytb991 98 - 110 mmol/LQUESTCarbon Fycongo3226 - 32 mmol/NIUCIHWxwqojv27.18.6 - 10.2 mg/dLQUESTSpecimen (Source)Anatomical Location / LateralityCollection Method / VolumeCollection TimeReceived TimeBloodVenous blood specimen / Ngazwtk7009/24/2025 1:01 PM EST09/24/2025 1:02 PM EST Narrative Resulting Agency Comment Performing Organization Information ?Site ID: QPT ?Name: [facility] ?Address: [address] [place] [address], [address] [place] [address] ?Director: Justino Casillas MD Authorizing ProviderResult TypeResult StatusBarbara Yousif NPLAB BLOOD ORDERABLESFinal ResultPerforming OrganizationAddressCity/State/ZIP CodePhone Number QUEST * Endometrial biopsy (09/21/2025 4:08 PM EST) [...] no immediate complications Authorizing ProviderResult TypeResult StatusNhan Aleman DOIN CLINIC/BEDSIDE ORDERABLESFinal Result * POCT , urine manually resulted (09/21/2025 4:03 PM EST)ComponentValue Ref RangeTest MethodAnalysis TimePerformed AtPathologist SignaturePreg Test, UrNegativeNegativeSpecimen (Source)Anatomical Location / LateralityCollection Method / VolumeCollection TimeReceived RdbyEjpin89/15/2025 4:03 PM EST Narrative Authorizing ProviderResult TypeResult StatusNhan Aleman DOPOINT OF CARE TEST ENTER/EDIT ORDERABLESFinal Result * US Pelvis w/ TV (08/12/2025 11:14 AM EST)Anatomical RegionLateralityModality PelvisUltrasoundSpecimen (Source)Anatomical Location / LateralityCollection Method / VolumeCollection TimeReceived Time08/12/2025 2:13 PM EST Impressions 08/13/2025 7:57 AM EST Endometrial fluid collection near the fundus, no focal mass. Correlate with menstrual cycle history and at minimum follow up examinations. TRANSCRIBED BY: ? ELECTRONICALLY SIGNED BY: Sagar Ramos MD Narrative 08/13/2025 7:57 AM EST FINDINGS: Uterus ? 9.1 x 5.5 x 3.6cm Endometrium ??12mm Right Ovary ?2.5 x 2.2 x 1.6 cm Left Ovary ? not seen Normal uterine orientation. ??Normal endometrial thickness, small amount fluid upper endometrium fundal region. ??Several cervical Nabothian cysts. ??No endometrial mass. No pelvic fluid. ??Bilateral follicular ovaries. Procedure Note Sagar Ramos MD - 08/13/2025 FINDINGS: Uterus 9.1 x 5.5 x 3.6cm Endometrium 12mm Right Ovary 2.5 x 2.2 x 1.6 cm Left Ovary not seen Normal uterine orientation. Normal endometrial thickness, small amountfluid upper endometrium fundal region. Several cervical Nabothian cysts.No endometrial mass. No pelvic fluid. Bilateral follicular ovaries. IMPRESSION: Endometrial fluid collection near the fundus, no focal mass. Correlatewith menstrual cycle history and at minimum follow up examinations. TRANSCRIBED BY: ELECTRONICALLY SIGNED BY: Sagar Ramos MD Authorizing ProviderResult TypeResult StatusAmy [facility] PROCEDURESFinal Result * IGP,APTIMA HPV,AGE GDLN (07/29/2025 9:51 AM EDT)ComponentValueRef RangeTest MethodAnalysis TimePerformed AtPathologist SignatureAGE GDLN ACOG TESTINGNote. TBHComment: ?? TESTS ? RESULT ??FLAG ??UNITS ?REF RANGE ??LAB ?? Clinician Provided Cytology Information ?? Source.............Cervix;Endocervix ?? No. of containers..01 ThinPrep Vial Age Algo ACOG Stefany... ??30-65 ? 01 ?FLAG LEGEND: ?L-Low Normal,H-High Normal,LL-Alert Low,HH-Alert High <-Panic Low,>-Panic High,A-Abnormal,AA-Critical Abnormal Performed at: 01 =G ?[facility] [place] ?? [address] [place], [place] ??[address] ?? Jyoti Wang MD, IGP, APTIMA HPV, RFX 16/18,45Note.TBHComment: ?? TESTS ? RESULT ??FLAG ??UNITS ?REF RANGE ??LAB DIAGNOSIS: ?02 ?? NEGATIVE FOR INTRAEPITHELIAL LESION OR MALIGNANCY. Specimen adequacy: ?02 ?? Satisfactory for evaluation. ??Endocervical and/or squamous metaplastic ?? cells (endocervical component) are present. Performed by: ? 02 ?? Reed Flores Alumni Relations Coordinator (ASCP) . ? 02 Note: ? Note ?02 ?? The Pap smear is a screening test designed to aid in the ?? detection of premalignant and malignant conditions of the ?? uterine cervix. ??It is not a diagnostic procedure and ?? should not be used as the sole means of detecting cervical ?? cancer. ??Both false-positive and false-negative reports do ?? occur. Test Methodology: ? Note ?02 ?? This liquid based ThinPrep(R) pap test was interpreted ?? using the AdRocket(R) The Invisible Armorius(TM) Cervical Algorithm whole ?? slide imaging system. HPV Genotype Reflex ?? Note ?02 ?? Criteria not met, HPV Genotype not performed. ?FLAG LEGEND: ?L-Low Normal,H-High Normal,LL-Alert Low,HH-Alert High <-Panic Low,>-Panic High,A-Abnormal,AA-Critical Abnormal Performed at: 02 WB ?[facility] [place] ?? [address] [place], [place] ??[phone] ?? Jyoti Wang MD, HPV APTIMANegativeNegativeTBHComment: This nucleic acid amplification test detects fourteen high- risk HPV types (16,18,31,33,35,39,45,51,52,56,58,59,66,68) without differentiation. Performed at: ??=G - [facility] [address] ??[id number] Soft Tile Setter: Jyoti Wang MD, Phone: ??[phone] Performed at: ?? - [facility] ??[id number] Soft Tile Setter: Jyoti Wang MD, Phone: ??[phone] Specimen (Source)Anatomical Location / LateralityCollection Method / Volume Collection TimeReceived Time07/29/2025 9:51 AM EDT1 3:17 PM EDT Narrative CLINIS[facility] - 08/02/2025 4:08 PM EDT BRUSH-SPATULA CERVIX ENDOCERVIX Authorizing ProviderResult TypeResult StatusAmy Howard PALAB BLOOD ORDERABLES Final ResultPerforming OrganizationAddressCity/State/ZIP CodePhone Number CLINISYGA [facility] * PAP TEST, EXTERNAL (07/29/2025 12:00 AM EDT) Narrative Authorizing ProviderResult TypeResult StatusFazio Nurse [facility] ObLAB CYTOLOGY ORDERABLESFinal ResultPerforming OrganizationAddressCity/State/ZIP CodePhone Number EXTERNAL LAB * (ABNORMAL) ANTINUCLEAR ANTIBODIES TITER AND PATTERN (07/22/2025 2:14 PM EDT) ComponentValueRef RangeTest MethodAnalysis TimePerformed AtPathologist SignatureANA TITER1:160(H)titerQUESTComment: ?Reference Range <1:40 Negative ?1:40-1:80 ?Low Antibody Level >1:80 Elevated Antibody Level PHYLLIS PATTERNNuclear, Speckled(A)QUESTComment: Speckled pattern is associated with mixed connective tissue disease (MCTD), systemic lupus erythematosus (SLE), Sjogren's syndrome, dermatomyositis, and systemic sclerosis/polymyositis overlap. AC-2,4,5,29: Speckled International Consensus on PHYLLIS Patterns (https://doi.org/10.1515/zldg-7362-4846) Specimen (Source)Anatomical Location / LateralityCollection Method / Volume Collection TimeReceived Time07/22/2025 2:14 PM EDT1 2:15 PM EDT Narrative Resulting Agency Comment Performing Organization Information ?Site ID: QPT ?Name: [facility] ?Address: [address] [place] [address], [address] [place] [phone] ?Director: Justino Casillas MD Authorizing ProviderResult TypeResult StatusSasara Yousif LAB BLOOD ORDERABLESFinal ResultPerforming OrganizationAddressCity/State/ZIP CodePhone Number QUEST * Thyroid peroxidase antibody (07/22/2025 2:14 PM EDT)ComponentValueRef Range Test MethodAnalysis TimePerformed AtPathologist SignatureTHYROID PEROXIDASE ANTIBODIES1<9 IU/mLQUESTSpecimen (Source)Anatomical Location / Laterality Collection Method / VolumeCollection TimeReceived TimeBloodVenous blood specimen / Bkmwqgo8607/22/2025 2:14 PM EDT1 2:15 PM EDT Narrative Resulting Agency Comment Performing Organization Information ?Site ID: QPT ?Name: [facility] ?Address: [address] [place] [address], [address] [place] [phone] ?Director: Justino Casillas MD Authorizing ProviderResult TypeResult StatusSasara Yousif LAB BLOOD ORDERABLESFinal ResultPerforming OrganizationAddressty/[facility]/ZIP CodePhone Number [facility]ST * Thyroglobulin (07/22/2025 2:14 PM EDT)ComponentValueRef RangeTest Method Analysis TimePerformed AtPathologist SignatureTHYROGLOBULIN ANTIBODIES<1< or = 1 IU/mLQUESTTHYROGLOBULIN8.5ng/mLQUESTComment: ?Reference Range: ?Intact Thyroid ?? 2.8-40.9 Athyrotic <0.1 ?Note: Abnormal flagging is based ?on the reference interval for ?patients with intact thyroid. ? This test was performed using the Ladonna Paulden chemiluminescent method. Values obtained from different assay methods cannot be used interchangeably. Thyroglobulin levels, regardless of value, should not be interpreted as absolute evidence of the presence or absence of disease. For additional information, please refer to http://education.Kerecis.Entomo/faq/TZF069 (This link is being provided for informational/ educational purposes only.) Specimen (Source)Anatomical Location / LateralityCollection Method / Volume Collection TimeReceived TimeBloodVenous blood specimen / Varjceo6807/22/2025 2:14 PM EDT1 2:15 PM EDT Narrative Resulting Agency Comment Performing Organization Information ?Site ID: QPT ?Name: [facility] ?Address: [address] [place] [address], [address] [place] [phone] ?Director: Justino Casillas MD Authorizing ProviderResult TypeResult StatusBarbara Yousif [facility] BLOOD ORDERABLESFinal ResultPerforming OrganizationAddressSelect Medical [facility] CodePhone Number [facility]ST * Sedimentation rate, automated (07/22/2025 2:14 PM EDT)ComponentValueRef Range Test MethodAnalysis TimePerformed AtPathologist SignatureSED RATE BY MODIFIED DETSRROKPO90< OR = 20 mm/hQUESTSpecimen (Source)Anatomical Location / LateralityCollection Method / VolumeCollection TimeReceived TimeBloodVenous blood specimen / Jqpaokq4507/22/2025 2:14 PM EDT1 2:15 PM EDT Narrative Resulting Agency Comment Performing Organization Information ?Site ID: QPT ?Name: [facility] ?Address: [address] [place] [address], [address] [place] [phone] ?Director: Justino Casillas MD Authorizing ProviderResult TypeResult StatusSasara Yousif LAB BLOOD ORDERABLESFinal ResultPerforming OrganizationAddressCity/State/ZIP CodePhone Number [facility] * CBC and differential (07/22/2025 2:14 PM EDT)ComponentValueRef RangeTest MethodAnalysis TimePerformed AtPathologist SignatureWHITE BLOOD CELL COUNT6.1 3.8 - 10.8 Thousand/uLQUESTRED BLOOD CELL COUNT4.583.80 - 5.10 Million/uLQUEST FMLDMZSGLV45.311.7 - 15.5 g/vFWYPAMMTZFSIJTIA15.935.0 - 45.0 %KOKDPBVF69.780.0 - 100.0 yJQYLDSILO21.227.0 - 33.0 vgAQJRHKAZL71.332.0 - 36.0 g/dLQUESTComment: For adults, a slight decrease in the calculated MCHC value (in the range of 30 to 32 g/dL) is most likely not clinically significant; however, it should be interpreted with caution in correlation with other red cell parameters and the patient's clinical condition. RDW12.011.0 - 15.0 %QUESTPLATELET VHCOG164183 - 400 Thousand/uLQUESTMPV9.67.5 - 12.5 fLQUESTABSOLUTE NEUTROPHILS3,3121,500 - 7,800 cells/uLQUESTABSOLUTE LYMPHOCYTES1,450786 - 3,900 cells/uLQUESTABSOLUTE QNIJFTHLT474770 - 950 cells/uL QUESTABSOLUTE VLRDEYGQZXY17440 - 500 cells/uLQUESTABSOLUTE AWVFJVSVL393 - 200 cells/nYGKGUFUJWVEHTGESL31.3%KNQLTIYPJUFUZMZR19.9%QUESTMONOCYTES7.8%QUEST EOSINOPHILS5.8%QUESTBASOPHILS1.2%QUESTSpecimen (Source)Anatomical Location / LateralityCollection Method / VolumeCollection TimeReceived TimeBloodVenous blood specimen / Djqadsy7707/22/2025 2:14 PM EDT1 2:15 PM EDT Narrative Resulting Agency Comment Performing Organization Information ?Site ID: QPT ?Name: [facility] ?Address: [address] [place] [address], [address] [place] [address] ?Director: Justino Casillas MD Authorizing ProviderResult TypeResult StatusBarbara Yousif LAB BLOOD ORDERABLESFinal ResultPerforming OrganizationAddressty/[facility]/ZIP CodePhone Number [facility] * (ABNORMAL) Rheumatoid factor (07/22/2025 2:14 PM EDT)ComponentValueRef Range Test MethodAnalysis TimePerformed AtPathologist SignatureRHEUMATOID CSVHIU426 (H)<14 IU/mLQUESTComment: Results verified by repeat analysis on dilution. Specimen (Source)Anatomical Location / LateralityCollection Method / Volume Collection TimeReceived TimeBloodVenous blood specimen / Uqlrjhs4707/22/2025 2:14 PM EDT1 2:15 PM EDT Narrative Resulting Agency Comment Performing Organization Information ?Site ID: QPT ?Name: [facility] ?Address: [address] [place] [address], [address] [place] [address] ?Director: Justino Casillas MD Authorizing ProviderResult TypeResult StatusSasara Yousif [facility] BLOOD ORDERABLESFinal ResultPerforming OrganizationAddressty/State/ZIP CodePhone Number QUEST * C-reactive protein (07/22/2025 2:14 PM EDT)ComponentValueRef RangeTest Method Analysis TimePerformed AtPathologist SignatureC-REACTIVE PROTEIN<3.0<8.0 mg/L QUESTSpecimen (Source)Anatomical Location / LateralityCollection Method / VolumeCollection TimeReceived TimeBloodVenous blood specimen / Unknown 07/22/2025 2:14 PM EDT1 2:15 PM EDT Narrative Resulting Agency Comment Performing Organization Information ?Site ID: QPT ?Name: [facility] ?Address: [address] [place] [address], [address] [place] [address] ?Director: Justino Casillas MD Authorizing ProviderResult TypeResult StatusBarbara Yousif [facility] BLOOD ORDERABLESFinal ResultPerforming OrganizationAddressCity/State/ZIP CodePhone Number [...] indicated. For additional information, please refer to http://education.SnapMyAd/faq/UHD272 (This link is being provided for informational/ educational purposes only.) ?? Specimen (Source)Anatomical Location / LateralityCollection Method / Volume Collection TimeReceived TimeBloodVenous blood specimen / Gyzrliz0107/22/2025 2:14 PM EDT1 2:15 PM EDT Narrative Resulting Agency Comment Performing Organization Information ?Site ID: QPT ?Name: [facility] [facility] ?Address: [address] [place] [address], [address] [place] [address] ?Director: Justino Casillas MD Authorizing ProviderResult TypeResult StatusBarbara Yousif [facility] BLOOD ORDERABLESFinal ResultPerforming OrganizationAddressCity/State/ZIP CodePhone Number QUEST * Uric acid (07/22/2025 2:14 PM EDT)ComponentValueRef RangeTest MethodAnalysis TimePerformed AtPathologist SignatureURIC ACID6.52.5 - 7.0 mg/dLQUESTComment: Therapeutic target for gout patients: <6.0 mg/dL ?? Specimen (Source)Anatomical Location / LateralityCollection Method / Volume Collection TimeReceived TimeBloodVenous blood specimen / Vpteite4307/22/2025 2:14 PM EDT1 2:15 PM EDT Narrative Resulting Agency Comment Performing Organization Information ?Site ID: QPT ?Name: [employer] [facility] ?Address: [address], [address] [place] [address] ?Director: Justino Casillas MD Authorizing ProviderResult TypeResult StatusBarbara Yousif NPLAB BLOOD ORDERABLESFinal ResultPerforming OrganizationAddNazareth Hospitalty/[facility]/ZIP CodePhone Number QUEST * T3, free (07/22/2025 2:14 PM EDT)ComponentValueRef RangeTest MethodAnalysis TimePerformed AtPathologist SignatureT3, FREE2.72.3 - 4.2 pg/mLQUESTSpecimen (Source)Anatomical Location / LateralityCollection Method / VolumeCollection TimeReceived TimeBloodVenous blood specimen / Cnjhtnq7807/22/2025 2:14 PM EDT 07/22/2025 2:15 PM EDT Narrative Resulting Agency Comment Performing Organization Information ?Site ID: QPT ?Name: [employer] [facility] ?Address: [facility] [address], [address] [place] [address] ?Director: Justino Casillas MD Authorizing ProviderResult TypeResult StatusBarbara Yousif NPLAB BLOOD ORDERABLESFinal ResultPerforming OrganizationAddNazareth Hospitalty/[facility] CodePhone Number QUEST * TSH (07/22/2025 2:14 PM EDT)ComponentValueRef RangeTest MethodAnalysis Time Performed AtPathologist SignatureTSH1.60mIU/LQUESTComment: ?Reference Range ? > or = 20 Years 0.40-4.50 ? Ranges ?First trimester ?0.26-2.66 ?Second trimester ?? 0.55-2.73 ?Third trimester ?0.43-2.91 Specimen (Source)Anatomical Location / LateralityCollection Method / Volume Collection TimeReceived TimeBloodVenous blood specimen / Kwzxcfc1707/22/2025 2:14 PM EDT1 2:15 PM EDT Narrative Resulting Agency Comment Performing Organization Information ?Site ID: QPT ?Name: [employer] [facility] ?Address: [address] [place] [address], [address] [place] [address] ?Director: Justino Casillas MD Authorizing ProviderResult TypeResult StatusSasara Yousif [facility] BLOOD ORDERABLESFinal ResultPerforming OrganizationAddressty/State/ZIP CodePhone Number QUEST * T4, free (07/22/2025 2:14 PM EDT)ComponentValueRef RangeTest MethodAnalysis TimePerformed AtPathologist SignatureT4, FREE1.20.8 - 1.8 ng/dLQUESTSpecimen (Source)Anatomical Location / LateralityCollection Method / VolumeCollection TimeReceived TimeBloodVenous blood specimen / Qtereeg5807/22/2025 2:14 PM EDT 07/22/2025 2:15 PM EDT Narrative Resulting Agency Comment Performing Organization Information ?Site ID: QPT ?Name: [facility] [facility] ?Address: [address] [place] [address], [address] [place] [address] ?Director: Justino Casillas MD Authorizing ProviderResult TypeResult StatusSasara Yousif LAB BLOOD ORDERABLESFinal ResultPerforming OrganizationAddNazareth Hospitalty/State/[facility] CodePhone Number QUEST * Vitamin B6 (07/22/2025 2:14 PM EDT)ComponentValueRef RangeTest MethodAnalysis TimePerformed AtPathologist SignatureVITAMIN B6, PLASMA8.12.1 - 21.7 ng/mL QUESTComment: Vitamin supplementation within 24 hours prior to blood draw may affect the accuracy of the results. This test was developed and its analytical performance characteristics have been determined by [employer] [place], [place]. It has not been cleared or approved by the U.S. Food and Drug Administration. This assay has been validated pursuant to the CLIA regulations and is used for clinical purposes. ? Specimen (Source)Anatomical Location / LateralityCollection Method / Volume Collection TimeReceived TimeBloodVenous blood specimen / Mmxmsjb5107/22/2025 2:14 PM EDT1 2:15 PM EDT Narrative Resulting Agency Comment Performing Organization Information ?Site ID: AMD ?Name: [employer] ?Address: [address] [place] [address] [address] [place] ?Director: Wale Weber M.D.,PhD Authorizing ProviderResult TypeResult StatusSasara Yousif NPLAB BLOOD ORDERABLESFinal ResultPerforming OrganizationAddressty/State/ZIP CodePhone Number QUEST * Vitamin B12 (07/22/2025 2:14 PM EDT)ComponentValueRef RangeTest MethodAnalysis TimePerformed AtPathologist SignatureVITAMIN [id number] - 1,100 pg/mLQUEST Specimen (Source)Anatomical Location / LateralityCollection Method / Volume Collection TimeReceived TimeBloodVenous blood specimen / Zxreddw7107/22/2025 2:14 PM EDT1 2:15 PM EDT Narrative Resulting Agency Comment Performing Organization Information ?Site ID: QPT ?Name: [facility] [facility] ?Address: [address] [place] [address] ?Director: Justino Casillas MD Authorizing ProviderResult TypeResult StatusSasara Yousif NPLAB BLOOD ORDERABLESFinal ResultPerforming OrganizationAddressty/State/ZIP CodePhone Number QUEST * (ABNORMAL) Comprehensive metabolic panel (07/22/2025 2:14 PM EDT)Component ValueRef RangeTest MethodAnalysis TimePerformed AtPathologist SignatureGlucose 8165 - 99 mg/dLQUESTComment: ? Fasting reference interval XNX645 - 25 mg/dLQUESTCreatinine1.00(H)0.50 - 0.99 mg/eJIJTXVEEGV77> OR = 60 mL/min/1.12q6JPKCRXDH/CREATININE QDCRG094 - 22 (calc)ETUZRTwwbst180845 - 146 mmol/LQUESTPotassium, Bld3.3(L)3.5 - 5.3 mmol/DBNNFLNwtkmxij85417 - 110 mmol/L QUESTCarbon Uedhgem0236 - 32 mmol/DOSRMBPfddolo80.3(H)8.6 - 10.2 mg/dLQUEST PROTEIN, TOTAL8.06.1 - 8.1 g/dLQUESTALBUMIN4.93.6 - 5.1 g/dLQUESTGLOBULIN3.11.9 - 3.7 g/dL (calc)QUESTALBUMIN/GLOBULIN RATIO1.61.0 - 2.5 (calc)QUESTBILIRUBIN, TOTAL0.70.2 - 1.2 mg/dLQUESTALKALINE XMUFXSFMOJI1586 - 125 U/ACBWWGKTX8687 - 30 U/HIUVKSEMX423 - 29 U/LQUESTSpecimen (Source)Anatomical Location / Laterality Collection Method / VolumeCollection TimeReceived TimeBloodVenous blood specimen / Rkbpnrw1107/22/2025 2:14 PM EDT1 2:15 PM EDT Narrative Resulting Agency Comment Performing Organization Information ?Site ID: QPT ?Name: [facility] [facility] ?Address: [address] [place] [address], [address] [place] [phone] ?Director: Justino Casillas MD Authorizing ProviderResult TypeResult StatusSasara Yousif [facility] BLOOD ORDERABLESFinal ResultPerforming OrganizationAddressCity/State/ZIP CodePhone Number [...] D, (D2,D3), LC/MS/MS is recommended: order code 66452 (patients >2yrs). See Note 1 Note 1 For additional information, please refer to http://education.AppEnsure.Entomo/faq/LTI079 (This link is being provided for informational/ educational purposes only.) Specimen (Source)Anatomical Location / LateralityCollection Method / Volume Collection TimeReceived TimeBloodVenous blood specimen / Ohibenf4307/15/2025 8:09 AM EDT1 3:56 PM EDT Narrative Resulting Agency Comment Performing Organization Information ?Site ID: QPT ?Name: [employer] [facility] ?Address: [address] [place] [address], [address] [place] [phone] ?Director: Justino Casillas MD Authorizing ProviderResult TypeResult [...] IS VERY IMPORTANT TO YOUR HEALTH. ??THE [employer] GUIDELINES RECOMMEND THAT WOMEN 40 [...] IS VERY IMPORTANT TO YOUR HEALTH. THE [employer] GUIDELINES RECOMMEND THAT WOMEN 40 [...] BY: Sagar Ramos MD Authorizing ProviderResult TypeResult StatusSajewish memorial hospitaljones Yousif NPIMG BI PROCEDURESFinal Result from Last 3 Months or Most Recently Relevant to Health Maintenance Insurance Care Teams Team MemberRelationshipSpecialtyStart DateEnd Date Micheal An MD [address], [place] [phone] PCP - GeneralFamily Fkscyofl40/2/25 Barbara Yousif NP [address] [place] [address] Nurse Practitionermily Medicine12/20/23
--- OUTSIDE RECORDS SUMMARY | 2025-09-25 09:03 | XMS_ITS | Clinical Summary ---
Author Organization [facility] Address [address] [place] [address] Care Team Providers Care Oil Truck Driver Name Role Phone Natalie Freeman MD Unavailable Unavai lable Encounters DateTypeDepartmentCare EhjrGjwsvmxwjhb82/26/2025Telephone Cardiology [address] [place] [address] Heri Rodrigues MD Received Referral and Outside Medical Records (Appointment 03/08/2026)09/02/2025 Telephone Cardiology [address] [place] [address] Heri Rodrigues MD Theubsi5109/02/2025Orders Only Cardiology [address] [place], [place] [phone] Heri Rodrigues MD POTS (postural orthostatic tachycardia syndrome) (Primary Dx)from Last 3 Months Social History Tobacco UseTypesPacks/DayYears UsedDateSmoking Tobacco: Never Assessed CommentsUnknownSex and Gender InformationValueDate RecordedSex Assigned at Not on fileLegal DtjLhoilt76/26/2025 8:31 AM ESTGender IdentityNot on fileSexual OrientationNot on file Plan of Treatment DateTypeDepartmentCare Team (Latest Contact Info)Aewlmqjjscx98/01/2026 1:30 PM EDTOffice Visit Cardiology [address] [place] [address] Regi03/08/2026 1:45 PM EDTProcedure Cardiology [address] [place] [address] POTS03/08/2026 2:30 PM EDTOffice Visit Cardiology [address] [place] [address] Heri Rodrigues MD [address] [place] [address] POTSHealth MaintenanceDue DateLast DoneCommentsAnxiety Wyiapqttt11/12/2000 Depression Chnwsdrvz33/12/2000HIV Evkslyobd08/12/2000Hepatitis C Screening 2000DTaP,Tdap,Td Vaccine (1 - Tdap)2001Hepatitis B Vaccine (1 of 3 - 19+ 3-dose series)2001Cervical Cancer Oaksjsoic93/12/2003HPV Vaccine (1 - 3-dose SCDM series)2009Mammogram Dqligbefk11/12/2022Covid-19 Vaccine ( - 2024- season)2025Influenza Vaccine (#1)2025 Insurance Care Teams Team MemberRelationshipSpecialtyStart DateEnd Date Natalie Freeman MD [address] [place] [address]; [address] [place] [address] IhwfcyvctMeavzenekf25/26/25
--- OUTSIDE RECORDS SUMMARY | 2025-09-25 09:03 | XMS_ITS | Encounter Summary ---
Author Organization [facility] Address [address] [place] [address] Care Team Providers Care Assistant Infant Teacher Name Role Phone Barbara Yousif POSTING MACHINE OPERATOR Unavailable [phone] Micheal An MD Primary Care Provider Encounter Details DateTypeDepartmentCare Team (Latest Contact Info)Facorvmzrvc99/15/2025bstract DANIELLE [place] [facility] [address] [place] [phone] Nhan Aleman DO [address], [place] [phone] Social History Tobacco UseTypesPacks/DayYears UsedDateSmoking Tobacco: NeverPassive [...] drinks on one occasion?Never04/06/2025PHQ-2AnswerDate RecordedPatient Health Questionnaire-2 Xtyoc409CommentsNoSex and Gender InformationValueDate Recorded Sex Assigned at DiqycZdwyor43/11/2024 3:14 PM ESTLegal DpwDqetqi72/15/2023 7:00 PM EDTGender OpbbmephEqnnsv15/11/2024 3:14 PM ESTSexual OrientationNot on file documented as of this encounter Plan of Treatment DateTypeDepartmentCare Team (Latest Contact Info)Thqamweuaok96/02/2026 1:00 PM EDTOffice Visit [facility] [address] [place] [address] Barbara Yousif NP [address] [facility] [place] [address] 08/04/2026 9:00 AM EDTProcedure Visit NOMJoycelyn TAYLOR [address] [place] [address] Virgie Lomax PA [address] [place], [place] [phone] documented as of this encounter Visit Diagnoses Not on filedocumented in this encounter Care Teams Team MemberRelationshipSpecialtyStart DateEnd Date Micheal An MD [address] [place], [place] [phone] PCP - GeneralFamily Rejyyuph19/2/25 Barbara Yousif NP [address] [place], [place] [address] Nurse PractitionerFamily Medicine12/20/23documented as of this encounter
--- OUTSIDE RECORDS SUMMARY | 2025-09-25 09:03 | XMS_ITS | Clinical Summary ---
Author Organization [facility] Address [address] [place] [address] Care Team Providers Care Dishwasher Preparer Name Role Phone Barbara Yousif MD Primary Care Provider [phone] Encounters DateTypeDepartmentCare OnhvGhxyrsbgmcv07/23/2025 11:08 AM EDT - 07/30/2025 11:59 PM EDTHospital Encounter [facility] [address] [place] [phone] Paroxysmal atrial fibrillation (CMS/HCC); Abnormal findings on diagnostic imaging of other specified body structures Discharge Disposition: Home or Self Care (01)from Last 3 Months Social History Tobacco UseTypesPacks/DayYears UsedDateSmoking Tobacco: Never Assessed CommentsUnknownSex and Gender InformationValueDate RecordedSex Assigned at Ssvepl4807/04/2025 9:42 AM EDTLegal KslLmcvzf95/26/2025 2:30 PM EDTGender Identity Tbelyn8007/30/2025 11:08 AM EDTSexual OrientationHeterosexual or Straight 07/30/2025 11:08 AM EDT Plan of Treatment Health MaintenanceDue DateLast DoneCommentsDepression Yqmsssgwe79/12/1994 Varicella Vaccines (1 of 2 - 13+ 2-dose series)1995Hepatitis B Vaccines (1 of 3 - 19+ 3-dose series)2001Pap Smear2003Adult Ajjzjic1903/19/2004HPV Vaccines (1 - 3-dose SCDM series)2009Cervical Cancer Ebsdahobe05/12/2012 HPV/Vodqkw96/12/2012Influenza Vaccine (#1)06/08/20259708Wkrsulwcj54/13/2026 12/19/2023Zoster Vaccines (1 of 2)2032HIB VaccinesAged OutNo [...] to complete this topic Procedures Procedure NamePriorityDate/TimeAssociated DiagnosisCommentsMRI CARDIAC MORPHOLOGY AND FUNCTION W AND WO IV NBWFEAGDJqqxxdr20/23/2025 12:51 PM EDT Paroxysmal atrial fibrillation (CMS/HCC) Abnormal findings on diagnostic imaging of other specified body structures from Last 3 Months Results * MR cardiac morphology and function w and wo IV contrast (07/30/2025 12:51 PM EDT)Anatomical RegionLateralityModalityBody, HeartMagnetic ResonanceSpecimen (Source)Anatomical Location / LateralityCollection Method / VolumeCollection TimeReceived Time08/03/2025 7:49 AM EDT Impressions 08/03/2025 8:45 AM EDT Preserved left ventricular function. Wall thickness, chamber size, wall motion within normal limits. No late gadolinium enhancement. Mild mitral regurgitation. Electronically signed: Junior Shoemaker. Narrative 08/03/2025 8:45 AM EDT STUDY: Cardiac MRI with and without contrast CLINICAL HISTORY: Paroxysmal atrial fibrillation. ? COMPARISON: Report on Cardiac echo 05/06/2025. TECHNIQUE: Cardiac MRI was performed utilizing gated steady state free precession imaging prior to and following the uneventful administration intravenous gadolinium contrast for evaluation of delayed myocardial enhancement. Multiplanar multisequence imaging was performed. FINDINGS: The left ventricle is normal in size. Global systolic left ventricular function is within normal limits. No evidence of focal wall motion abnormality. Left ventricular quantitative parameters as follows: Ejection Fraction 61 % (normal: male = 56-78%; female = 56-78%). End Diastolic Diameter is 49 mm (normal: 36-56-mm). Stroke Volume 46 mL. End Diastolic Volume 76 mL (normal: male = 77-195 ml; female = 52-141 ml). End Systolic Volume 29 mL (normal: male = 19 - 72 ml, female = 13-51 ml). Anteroseptal wall thickness: 0.7 cm. Posterolateral wall thickness: 0.7 cm. No evidence of left ventricular delayed myocardial enhancement. Left atrium is normal. Qualitatively mild mitral regurgitation. Right ventricle is normal in size. No focal right ventricular wall motion abnormality is identified. No evidence of fibrofatty infiltration of the right ventricular wall. Right atrium is normal in size. No evidence of tricuspid regurgitation. Procedure Note Junior Shoemaker MD - 08/03/2025 STUDY: Cardiac MRI with and without contrast CLINICAL HISTORY: Paroxysmal atrial fibrillation. COMPARISON: Report on Cardiac echo 05/06/2025. TECHNIQUE: Cardiac MRI was performed utilizing gated steady state free precession imaging prior to and following the uneventful administration intravenous gadolinium contrast for evaluation of delayed myocardial enhancement. Multiplanar multisequence imaging was performed. FINDINGS: The left ventricle is normal in size. Global systolic left ventricularfunction is within normal limits. No evidence of focal wall motion abnormality. Left ventricular quantitative parameters as follows: Ejection Fraction 61 % (normal: male = 56-78%; female = 56-78%). End Diastolic Diameter is 49 mm (normal: 36-56-mm). Stroke Volume 46 mL. End Diastolic Volume 76 mL (normal: male = 77-195 ml; female = 52-141ml). End Systolic Volume 29 mL (normal: male = 19 - 72 ml, female = 13-51ml). Anteroseptal wall thickness: 0.7 cm. Posterolateral wall thickness: 0.7 cm. No evidence of left ventricular delayed myocardial enhancement. Left atrium is normal. Qualitatively mild mitral regurgitation. Right ventricle is normal in size. No focal right ventricular wallmotion abnormality is identified. No evidence of fibrofatty infiltration of theright ventricular wall. Right atrium is normal in size. No evidence of tricuspid regurgitation. IMPRESSION: Preserved left ventricular function. Wall thickness, chamber size, wallmotion within normal limits. No late gadolinium enhancement. Mild mitral regurgitation. Electronically signed: Junior Shoemaker. Authorizing ProviderResult TypeResult StatusLinjammie DE LA FUENTE MRI PROCEDURES Final Result from Last 3 Months Insurance Care Teams Team MemberRelationshipSpecialtyStart DateEnd Date Barbara Yousif MD [address] [place] [phone] [facility]07/04/25
--- OUTSIDE RECORDS SUMMARY | 2025-09-25 09:03 | XMS_ITS | Clinical Summary ---
Author Organization [facility] Address [address] [place] [address] Care Team Providers Care Hotel Director Name Role Phone Unavailable Primary Care Provider Unavailabl e Source Comments The following information is NOT included in Care Everywhere downloads:Psychiatric notes, ECG results, Cardiac Rehab notes, Pulmonary Function notes, data from SmartForms (includes but not limited toPregnancy data,audiograms, eye exams, pre-surgical evaluation notes, well-child exam data).[facility] Encounters DateTypeDepartmentCare MxypZcniugofaac62/15/2025Telephone [facility] Pediatric Genetics [address] [place] [phone] Jerry Blanco 08/31/2025 1:45 PM ESTTelemedicine [facility] Pediatric Genetics [address] [place] [phone] Jerry Blanco PAF (paroxysmal atrial fibrillation) (Primary Dx); Atrial fibrillation, unspecified type (HCC); PVC (premature ventricular contraction); Prolonged Q-T interval on ECGfrom Last 3 Months Social History Tobacco UseTypesPacks/DayYears UsedDateSmoking Tobacco: Never Assessed CommentsUnknownSex and Gender InformationValueDate RecordedSex Assigned at Not on fileLegal WtiPjonbu87/01/2025 4:15 PM EDTGender IdentityNot on fileSexual OrientationNot on file Plan of Treatment Health MaintenanceDue DateLast DoneCommentsHIV Test1997Hepatitis C Ozbewuoq69/12/2000Tdap Szhvgtf9303/19/2000Hepatitis A (HAV) Vaccine (optional start 19+ years)2001Hepatitis B (HBV) Vaccine (1 of 3 - 19+ 3-dose series) 2001Pap Smear2003HPV Vaccine (optional start 27-45 years)2009 Dbnzqcrdtre73/13/873258/4COVID-19 Vaccine (2024- season)2025 Influenza Vaccine (#1)2025Shingles (RZV) Vaccine (1 of 2)2032 Pneumococcal Vaccine(s)Aged OutNo longer eligible based on patient's age to complete this topic Insurance
--- OUTSIDE RECORDS SUMMARY | 2025-09-25 09:03 | XMS_ITS | Encounter Summary ---
Author Organization [facility] Address [address] [place] [address] Care Team Providers Care Chain Maker Loom Control Name Role Phone Barbara Yousif COMPONENT TECHNICIAN Unavailable [phone] Micheal An MD Primary Care Provider [phone] Encounter Details DateTypeDepartmentCare Team (Latest Contact Info)Jgfuotidkww34/11/2025Orders Only [facility] Family Medicine [address] [place] [phone] Brenda Werner MA Social History Tobacco UseTypesPacks/DayYears UsedDateSmoking Tobacco: NeverPassive [...] drinks on one occasion?Never04/06/2025PHQ-2AnswerDate RecordedPatient Health Questionnaire-2 Epjld884CommentsNoSex and Gender InformationValueDate Recorded Sex Assigned at LpvgiZyvwxu59/11/2024 3:14 PM ESTLegal UbeSimzcs06/15/2023 7:00 PM EDTGender IwxcvjhpQctbhx86/11/2024 3:14 PM ESTSexual OrientationNot on file documented as of this encounter Progress Notes * Brenda Werner MA - 09/17/2025 11:32 AM EST Meds updated. documented in this encounter Plan of Treatment DateTypeDepartmentCare Team (Latest Contact Info)Vnseywgthcm53/02/2026 1:00 PM EDTOffice Visit [facility] [place] [facility] [address] [facility] [place] [phone] Barbara Yousif NP [address] [facility] [place], [place] [address] 08/04/2026 9:00 AM EDTProcedure Visit DANIELLE TAYLOR [address] [place] [address] Virgie Lomax PA [address] [facility] [place] [address] documented as of this encounter Visit Diagnoses Not on filedocumented in this encounter Care Teams Team MemberRelationshipSpecialtyStart DateEnd Date Micheal An MD [address] [place], [place] [phone] PCP - GeneralFamily Wpzkcugl99/2/25 Barbara Yousif NP [address] [place], [place] [address] Nurse PractitionerFamily Medicine12/20/23documented as of this encounter
--- OUTSIDE RECORDS SUMMARY | 2025-09-25 09:03 | XMS_ITS | Encounter Summary ---
Author Organization [facility] Address [address] [place] [address] Care Team Providers Care Practice Managers Name Role Phone Barbara Yousif CROSS TIE CUTTER Unavailable [phone] Micheal An MD Primary Care Provider [phone] Encounter Details DateTypeDepartmentCare Team (Latest Contact Info)Hjkctrmbsnq77/19/2025Results [facility] Family Medicine [address] [place] [phone] Brenda Werner MA Basic metabolic panel, Urinalysis with reflex microscopic (clean catch) Social History Tobacco UseTypesPacks/DayYears UsedDateSmoking Tobacco: NeverPassive [...] drinks on one occasion?Never04/06/2025PHQ-2AnswerDate RecordedPatient Health Questionnaire-2 Bjpiv142CommentsNoSex and Gender InformationValueDate Recorded Sex Assigned at EwrxiXdxlnj81/11/2024 3:14 PM ESTLegal KniGyissx47/15/2023 7:00 PM EDTGender MnahxrfuWbdowv42/08/2024 3:14 PM ESTSexual OrientationNot on file documented as of this encounter Plan of Treatment DateTypeDepartmentCare Team (Latest Contact Info)Anewmhvtwum99/02/2026 1:00 PM EDTOffice Visit [facility] [address] [place] [phone] Barbara Yousif NP [address] [place], [place] [address] 08/04/2026 9:00 AM EDTProcedure Visit NOMJoycelyn TAYLOR [address] [place] [address] Virgie Lomax PA [address] [facility] [place] [address] documented as of this encounter Visit Diagnoses Not on filedocumented in this encounter Care Teams Team MemberRelationshipSpecialtyStart DateEnd Date Micheal An MD [address] [place], [place] [phone] PCP - GeneralFamily Iulzrcvj86/2/25 Barbara Yousif NP [address] [place], [place] [address] Nurse PractitionerFamily Medicine12/20/23documented as of this encounter
--- OUTSIDE RECORDS SUMMARY | 2025-09-25 09:03 | XMS_ITS | Encounter Summary ---
Author Organization [facility] Address [address] [facility] [place] [address] Care Team Providers Care Dental Tech Name Role Phone Unavailable Primary Care Provider Unavailabl e Encounter Details DateTypeDepartmentCare Team (Latest Contact Info)Jpyyzygthmb70/15/2025Telephone [facility] Pediatric Genetics [address] [place] [phone] Jerry Blanco [address] [place] [address] Social History Tobacco UseTypesPacks/DayYears UsedDateSmoking Tobacco: Never Assessed CommentsUnknownSex and Gender InformationValueDate RecordedSex Assigned at Not on fileLegal TsqYpnhuf82/01/2025 4:15 PM EDTGender IdentityNot on fileSexual OrientationNot on filedocumented as of this encounter Miscellaneous Notes * Telephone Encounter - Jerry Blanco - 09/21/2025 10:43 AM EST Spoke with Ms. Sandhu to inform her of the results of her genetic testing: TEST: Unlock panel (157 cardiomyopathy and arrhythmia susceptibility genes) RESULTS: I let Ms. Sandhu know that her genetic testing results were normal/negative for all 157 cardiomyopathy/arrhythmia susceptibility genes analyzed (see test report for full list of genes). RECOMMENDATIONS: Based on these normal results, Ms. Sandhu should receive her care and cardiac screenings according to her personal medical history and family history of cardiac disease. Family members should inform their physicians of their family history of prolonged QT interval so that they mayreceive their own care and cardiac screenings according to their individual family histories and personal risk factors. Ms. Sandhu expressed her understanding of the above and is encouraged to call with any future questions/concerns. Result will be scanned into Epic under Genetic Testing order. Result will also be scanned to referring provider. Yasmany Blanco MS, [facility] Licensed Genetic Counselor documented in this encounter Plan of Treatment Not on file documented as of this encounter Visit Diagnoses Not on filedocumented in this encounter
--- OUTSIDE RECORDS SUMMARY | 2025-09-25 09:03 | XMS_ITS | Clinical Summary ---
Author Organization [facility] Address [address] [place] [address] Phone Care Team Providers Care Tie Tape Machine Operator Name Role Phone Yousif, Barbara Hernández APRN-GRADUATING MACHINE OPERATOR Primary Care Provi boris Allergies Active AllergyReactionsCriticalityNoted DateCommentsShellfish DerivedAnaphylaxis High08/07/2023 Medications MedicationSigDispense QuantityRefillsLast FilledStart DateEnd DateStatus magnesium oxide (Mag-Ox) 400 mg (241.3 mg magnesium) tablet Take 1 tablet (400 mg) by mouth 2 times a day.Active metoprolol succinate XL (Toprol-XL) 100 mg 24 hr tablet Indications:Essential (primary) hypertension,Paroxysmal atrial fibrillation (Multi),PalpitationTake 1 tablet (100 mg) by mouth once daily. 90 tablet ctive cetirizine (ZyrTEC) 10 mg tablet Take 1 tablet (10 mg) by mouth once daily.Active famotidine (Pepcid) 20 mg tablet Take 1 tablet (20 mg) by mouth once daily in the evening. Take with meals.Active lisinopril 5 mg tablet Indications:Essential hypertensionTake 1 tablet (5 mg) by mouth once daily. 90 tablet //[id number]/6Active hydroCHLOROthiazide (Microzide) 12.5 mg tablet Indications:Essential (primary) hypertensionTAKE 1 TABLET BY MOUTH ONCE DAILY. 90 tablet 5Active Active Problems ProblemNoted DateDiagnosed DateBMI 27.0-27.9,adult02/13/2024Never smoked tobacco 02/13/20242229Pinrqrgocwrpck40/08/2024Essential eqeutszoaccw06/31/2023Palpitation 3Paroxysmal atrial /31/2023VC (premature ventricular contraction)08/07/2023 Encounters DateTypeDepartmentCare QeclYuxwwzfawom55/24/2025Refill at [facility] [address] [phone] Timo Logan MD Essential (primary) hypertensionfrom Last 3 Months Family History Medical HistoryRelationNameCommentsIron deficiencyBrotherNo Known ProblemsFather No Known ProblemsMotherRelationNameStatusCommentsBrotherFatherMother Social History Tobacco UseTypesPacks/DayYears UsedDateSmoking Tobacco: NeverSmokeless Tobacco: Never Tobacco Cessation:Counseling Given: Not Answered Alcohol UseStandard Drinks/WeekCommentsNever0 (1 standard drink = 0.6 oz pure alcohol)CommentsUnknownSex and Gender InformationValueDate RecordedSex Assigned at BirthNot on fileLegal GcpTvlwwl03/26/2022 8:55 PM ESTGender Identity Not on fileSexual OrientationNot on file Last Filed Vital Signs Vital SignReadingTime TakenCommentsBlood Oimyiptc334/8610/22/2024 2:25 PM EST Hmeaa393110/22/2024 1:44 PM ESTTemperature--Respiratory Rate--Oxygen Saturation-- Inhaled Oxygen Concentration--Ceyiyb13 kg (161 lb)10/22/2024 1:44 PM ESTHeight 162.6 cm (5' 4 )10/22/2024 1:44 PM ESTBody Mass Index27.64010/22/2024 1:44 PM EST Plan of Treatment Health MaintenanceDue DateLast DoneCommentsHIV Dtqzolwrh1982MMR Vaccines (1 of 1 - Standard series)1983Diabetes Oqxqzlwpx73/12/2000Hepatitis C Ozggvwgep73/12/2000Hepatitis B Vaccines (1 of 3 - 19+ 3-dose series)2001 Cervical Cancer Hjgsotxxs09/12/2003HPV/Nsrhyz5403/19/2003Pap Smear2003 DTaP/Tdap/Td Vaccines (1 - Tdap)2004HPV Vaccines (1 - 3-dose standard series)03/19/20093366Hvlisewiv95/13/253894/, 12/19/2023Influenza Vaccine (#1) 2025OVID-19 Vaccine ( season)5Yearly Adult Physical /, 03/25/2024Lipid Panel/04/2024Zoster Vaccines (1 of 2)2032HIB VaccinesAged [...] Teams Team MemberRelationshipSpecialtyStart DateEnd Date Barbara Yousif, NURSING ATTENDANT-GRADUATING MACHINE OPERATOR [address] [place] [address] PCP - GeneralFamily Medicine02/13/24
--- OUTSIDE RECORDS SUMMARY | 2025-09-25 09:03 | XMS_ITS | Clinical Summary ---
Author Organization [facility] Address [id number] [address] [place] [address] Care Team Providers Care Community Cultural Development Officer Name Role Phone Barbara Yousif APRN-CHANGE MANAGEMENT DIRECTOR Primary Care Provider Allergies Active AllergyReactionsCriticalityNoted DateCommentsOtherShortness Of BreathHigh 01/24/2017 Seafood Medications MedicationSigDispense QuantityRefillsLast FilledStart DateEnd DateStatus escitalopram (LEXAPRO) 20 mg tablet Indications:Anxiety,Other depressionTake 1 tablet (20 mg total) by mouth once daily for 180 days. 90 tablet Active metoprolol succinate XL (TOPROL-XL) 50 mg 24 hr tablet Indications:Atrial fibrillation ([facility])Take 1 tablet (50 mg total) by mouth daily for 180 days. 90 tablet Active fluticasone (FLONASE) 50 mcg/actuation nasal spray ADMINISTER 2 SPRAYS INTO EACH NOSTRIL DAILY FOR 3 Bottle Active Active Problems ProblemNoted DateDiagnosed DateAtrial ceqpusbsyuqc38/07/4827Zshfdxw41/07/2017 Bikjgixxxk55/07/2017 Encounters DateTypeDepartmentCare FnmbZzgyadrivps97/21/2025Travelfrom Last 3 Months Family History Medical HistoryRelationNameCommentsAnxiety disorderMaternal GrandmotherHeart diseaseMaternal GrandmotherHypertensionMaternal GrandmotherStrokeMaternal GrandmotherAnxiety disorderMotherHypertensionMotherRelationNameStatusComments Maternal GrandmotherMother Social History Tobacco UseTypesPacks/DayYears UsedDateSmoking Tobacco: NeverAlcohol UseStandard Drinks/WeekCommentsYes0 (1 standard drink = 0.6 oz pure alcohol)ChildcareAnswer Date MtmktxgnNnefqluuvZsveica07/12/2019EmploymentAnswerDate RecordedEmployment Wlgzugg9603/19/2019Purpose - LifeAnswerDate RecordedPurpose and direction in life Eruvgkz75/11/2021CommentsUnknownSex and Gender InformationValueDate RecordedSex Assigned at BirthNot on fileLegal MlkCkdbre25/06/2015 11:34 AM EDT Gender IdentityNot on fileSexual OrientationNot on file Last Filed Vital Signs Vital SignReadingTime TakenCommentsBlood Rbbczqpa067/8603/14/2017 1:45 PM EDT Qsxon7396/07/2017 1:45 PM EDTTemperature--Respiratory Rate--Oxygen Saturation-- Inhaled Oxygen Concentration--Zxnsha93.8 kg (145 lb)03/14/2017 1:45 PM EDTHeight 163.8 cm (5' 4.5 )03/14/2017 1:45 PM EDTBody Mass Index24. 1:45 PM EDT Plan of Treatment Health MaintenanceDue DateLast DoneCommentsDepression Xpcxwrudk53/12/1994Tobacco Vfpkoxvob71/12/1994Adult BMI Auxrcosgt67/12/2000DTaP,Tdap and Td Vaccines (1 - Tdap)2001Pap Smear2003Influenza Luasixg8706/08/2025 Medical Devices Not on file Procedures Procedure NamePriorityDate/TimeAssociated DiagnosisCommentsSSA ANTIBODYRoutine 08/28/2025 4:20 PM EST Dermatitis, unspecified ANTI-JO1 NVGHukeyjv31/21/2025 4:20 PM EST Dermatitis, unspecified CENTROMERE FSHzohnis34/21/2025 4:20 PM EST Dermatitis, unspecified ANTI-WALLIS ANTIBODY DBUAvtkatt23/21/2025 4:20 PM EST Dermatitis, unspecified PHYLLIS SCREEN W/ IFGYRQMprhspo25/21/2025 4:20 PM EST Dermatitis, unspecified from Last 3 Months Results * Centromere AB (08/28/2025 4:20 PM EST)ComponentValueRef RangeTest Method Analysis TimePerformed AtPathologist SignatureCENTROMERE ANTIBODY<0.2<1.0 AI 08/28/2025 9:37 PM [facility] LAB[facility]YSpecimen (Source) Anatomical Location / LateralityCollection Method / VolumeCollection Time Received TimeBloodVenous blood / UnknownVenipuncture / Sgooeni4408/28/2025 4:20 PM EST08/28/2025 4:20 PM EST Narrative Authorizing ProviderResult TypeResult StatusClare E Whitner PA-CLAB BLOOD ORDERABLESFinal ResultPerforming OrganizationAddressCity/State/ZIP CodePhone Number [facility] [address] [place] [address], * Betty 1 AB IGG (08/28/2025 4:20 PM EST)ComponentValueRef RangeTest MethodAnalysis TimePerformed AtPathologist SignatureJO1 ANTIBODY<0.2<1.0 AI08/28/2025 9:37 PM [facility] LABORATORYSpecimen (Source)Anatomical Location / LateralityCollection Method / VolumeCollection TimeReceived TimeBloodVenous blood / UnknownVenipuncture / Ahaizkc7008/28/2025 4:20 PM EST08/28/2025 4:20 PM EST Narrative Authorizing ProviderResult TypeResult StatusClare E Whitner PA-CLAB BLOOD ORDERABLESFinal ResultPerforming OrganizationAddressCity/State/ZIP CodePhone Number [facility] [address] [place] [address], * SSA antibody (08/28/2025 4:20 PM EST)ComponentValueRef RangeTest Method Analysis TimePerformed AtPathologist SignatureSSA ANTIBODY<0.2<1.0 AI 08/28/2025 9:37 PM [facility] LABOR[facility]YSpecimen (Source) Anatomical Location / LateralityCollection Method / VolumeCollection Time Received TimeBloodVenous blood / UnknownVenipuncture / Zzkmcfl5408/28/2025 4:20 PM EST08/28/2025 4:20 PM EST Narrative Authorizing ProviderResult TypeResult StatusClare E Whitner PA-CLAB BLOOD ORDERABLESFinal ResultPerforming OrganizationAddressCity/State/ZIP CodePhone Number [facility] [address] [place] [address], * Anti-Wallis AB IGG (08/28/2025 4:20 PM EST)ComponentValueRef RangeTest Method Analysis TimePerformed AtPathologist SignatureANTI-WALLIS AB IGG<0.2<1.0 AI 08/28/2025 9:37 PM [facility] LABORATORYSpecimen (Source) Anatomical Location / LateralityCollection Method / VolumeCollection Time Received TimeBloodVenous blood / UnknownVenipuncture / Ylqfvgp7408/28/2025 4:20 PM EST08/28/2025 4:20 PM EST Narrative Authorizing ProviderResult TypeResult StatusClare Concha Mckeonner PA-CLAB BLOOD ORDERABLESFinal ResultPerforming OrganizationAddressCity/State/ZIP CodePhone Number [facility] [address] [place] [address], * PHYLLIS Screen w/ Reflex (08/28/2025 4:20 PM EST)ComponentValueRef RangeTest MethodAnalysis TimePerformed AtPathologist SignatureANA SCREEN W/REFLEX RlashemdVlnpgghb84/21/2025 9:37 PM [facility] Specimen (Source)Anatomical Location / LateralityCollection Method / Volume Collection TimeReceived TimeBloodVenous blood / UnknownVenipuncture / Unknown 08/28/2025 4:20 PM EST08/28/2025 4:20 PM EST Narrative [facility] - 08/28/2025 9:37 PM EST Testing performed using multiplex flow immunoassay. Eleven different antigens associated with systemic autoimmune diseases (dsDNA, Sm, Sm/POWER REACTOR OPERATOR, POWER REACTOR OPERATOR, Chromatin, SSA, SSB, Betty-1, Sc170, Ribo P, Centromere B) are included in this screening tests. Authorizing ProviderResult TypeResult StatusClare E Whitner PA-CLAB BLOOD ORDERABLESFinal ResultPerforming OrganizationAddressCity/State/ZIP CodePhone Number [facility] [address] [place] [address], from Last 3 Months Insurance Care Teams Team MemberRelationshipSpecialtyStart DateEnd Date Barbara Yousif APRN-CASSANDRA [address] [place] [address] PCP - GeneralFamily Medicine05/01/25
== END 2025-09-21 09:00 | disposition home or self-care (01) ==
LOC: LAB 08:59
PROVIDERS: Visit Provider Obstetrics & Gynecology
DX: N92.0 Excessive and frequent menstruation with regular cycle (principal)
CPT/HCPCS: 88305